=== PATIENT | female | born 1995 | race Two or more races ===

== ENCOUNTER 2025-02-23 10:00 | Inpatient (IN) | payer MEDICAID, SELFPAY ==
[2025-02-23] VITALS (9 sets, daily range): BP systolic 133–147; BP diastolic 91–108; PULSE 90–121; RESP 15–32; TEMP 36.9–37.9; O2SAT 94–100; BMI 38.4; BMI 36.3
--- NOTE | 2025-02-23 10:17 | EKG_ITS ---
[facility] Test Date: 2025-02-23 Pat Name: MAXIMINO NEWSOME Department: Room: - Gender: Female Composite Worker: : 1995 Requested By: Kj Chambers Order Number: [id number] Reading MD: Kj Chambers Measurements Intervals [place] Rate: 85 P: 42 FL: 148 QRS: 31 QRSD: 79 T: 38 QT: 352 QTc: 420 Interpretive Statements SINUS RHYTHM No previous ECG available for comparison /store/S0/[id number]/ecg/[id number].pdf
--- NOTE | 2025-02-23 10:17 | XR_ITS ---
Examination: PA lateral chest 2 views Technique T1 upright PA lateral chest 2 views Date and time: February 23, 2025 1132 hours INDICATIONS: Onset chest pain today. FINDINGS: Normal heart size. Lungs are clear. Osseous structures are intact IMPRESSION: No active disease
--- NOTE | 2025-02-23 10:18 | PD.EDRME ---
Rapid Medical Screening Exam RME Arrival date/time: 02/23/25 10:00 29-year-old female with no known medical history presents to the emergency room with a chief complaint of chest tightness, thoracic back pain, congestion, and weakness x 1 week I have greeted and performed a focused initial assessment of this patient. A comprehensive ED assessment and evaluation of the patient, analysis of all test results, and completion of the medical decision making process will be conducted by additional ED providers. Chief Complaint: Chest Pain Time Seen by Provider: 02/23/25 10:10 Vital signs: Vital Signs Temperature 100.3 F 02/23/25 10:11 Pulse Rate 95 02/23/25 10:11 Respiratory Rate 18 02/23/25 10:11 Blood Pressure 139/102 H 02/23/25 10:11 Pulse Oximetry (%) 98 02/23/25 10:11 Oxygen Delivery Method Room Air 02/23/25 10:11 Vital signs reviewed by provider: Yes
[2025-02-23] MEDS: ACETAMINOPHEN 500 MG TABLET 1000 MG PO (10:51)
[2025-02-23 11:10] LABS: Basophils % (Auto) 0 % (0-2.5); Eosinophils # (Auto) 0.1 Thou/mm3 (0.0-0.5); Eosinophils % (Auto) 0 % (0-10); Hematocrit 38.3 % (36.0-46.0); Hemoglobin 15.7 g/dL (12.0-16.0); Immature Granulocytes % (Auto) 0 % (0-0); Immature Granulocytes Auto 0.07 Thou/mm3 (0.00-0.00); Lymphocytes # (Auto) 2.2 Thou/mm3 (1.0-4.8); Lymphocytes % (Auto) 13 % (10-50); Mean Corpuscular Hemoglobin 35.9 pg (25.0-35.0); Mean Corpuscular Volume 88 fL (80-100); Monocytes # (Auto) 0.9 Thou/mm3 (0.0-0.8); Monocytes % (Auto) 5 % (0-12); Neutrophils # (Auto) 13.3 Thou/mm3 (1.8-7.7); Neutrophils % (Auto) 80 % (37-80); Nucleated Red Blood Cell % 0 /100 WBC (0); Platelet Count 309 Thou/mm3 (140-440); RDW Standard Deviation 42.2 fL (36.4-46.3); Red Blood Count 4.37 Miln/mm3 (4.00-5.20); White Blood Count 16.6 Thou/mm3 (3.6-11.0)
[2025-02-23 11:47] LABS: B-Type Natriuretic Peptide < 20 pg/mL (0-100)
[2025-02-23 11:50] LABS: Alanine Aminotransferase 16 U/L (10-49); Albumin, Serum 4.2 gm/dL (3.5-5.0); Albumin/Globulin Ratio 1.5 (1.2-2.2); Alkaline Phosphatase 86 U/L (46-116); Aspartate Amino Transferase 27 U/L (0-34); BUN/Creatinine Ratio 17 Ratio (12-20); Bilirubin,Total 0.6 mg/dL (0.3-1.2); Blood Urea Nitrogen 12 mg/dL (9-23); Calcium 8.3 mg/dL (8.3-10.6); Calcium (Corrected) 8.3 mg/dL (8.5-10.1); Chloride 98 mMol/L (98-107); Creatinine (Component) 0.7 mg/dL (0.6-1.3); Estimated Creatinine Clearance 123.9 mL/min (>60); Globulin 2.8 gm/dL (2.3-3.5); Glucose 132 mg/dL (74-106); Magnesium 1.6 mg/dL (1.6-2.6); Osmolality,Calculated 268 (275-295); Potassium 4.3 mMol/L (3.4-5.1); Sodium 133 mMol/L (136-145); Troponin I < 0.002 ng/mL (0.0-0.045); eGFR > 60 See Note
[2025-02-23 11:51] LABS: Anion Gap 23 (7-16)
[2025-02-23 11:52] LABS: Carbon Dioxide 12.2 mMol/L (20.0-31.0)
[2025-02-23] MEDS: HYDROcodone/APAP 5/325 TABLET 1 TAB PO ×2 (13:13→23:05)
--- NOTE | 2025-02-23 15:10 | PD.EDABDPN ---
ED Abdominal Pain RME/HPI General Chief Complaint: Chest Pain Stated complaint: CHEST/UPPER BACK PAIN RADIATING TO L) SIDE Time seen by provider: 02/23/25 10:10 Arrival date/time: 02/23/25 10:00 Limitations: no limitations RME / HPI RME / HPI narrative: 02/23/25 10:00 29-year-old female with no known medical history presents to the emergency room with a chief complaint of chest tightness, thoracic back pain, congestion, and weakness x 1 week I have greeted and performed a focused initial assessment of this patient. A comprehensive ED assessment and evaluation of the patient, analysis of all test results, and completion of the medical decision making process will be conducted by additional ED providers. DR. RICE MAIN ED EVALUATION: 29 year old female presents to the Emergency Department with complaint of left flank pain today. Pain is described as aching and rated severe. No other symptoms reported at this time. PMHx: section and since chronic abdominal pain. Endometriosis. Chronic hives , random with an unknown cause. Denies history of kidney stones. No allergies to medications. Social Hx: No tobacco, alcohol, or substance use. Related Data Home Medications ?Medication ?Instructions ?Recorded ?Confirmed vits no.124-ferrous fum 1 tab PO QDAY 10/13/23 10/13/23 27 mg iron-folic acid 800 mcg tablet ( Vitamin) Previous Rx's ?Medication ?Instructions ?Recorded hydrocodone 5 mg-acetaminophen 325 1 tab PO Q6H PRN pain #20 tabs 10/13/23 mg tablet ibuprofen 600 mg tablet 600 mg PO Q6H PRN pain #20 tabs 10/13/23 benzonatate 200 mg capsule 200 mg PO TID PRN cough #30 caps 10/15/23 pseudoephedrine HCl 60 mg tablet 60 mg PO Q6H PRN nasal congestion 10/15/23 #20 tabs Allergies Allergy/AdvReac Type Severity Reaction Status Date / Time No Known Allergies Allergy Verified 02/23/25 10:04 Review of Systems Review of Systems Systems Reviewed: All systems reviewed, normal except as documented Narrative Review of Systems: GEN: No fever, no chills, no weight loss EYES: No discharge, no visual changes, no pain HEENT: No ear pain, no congestion, no sore throat PULM: No shortness of breath, no cough, no congestion CV: No chest pain, no dyspnea on exertion, no palpitations GI: No nausea, no vomiting, no diarrhea, + left flank pain, no constipation : No frequency, no urgency and no dysuria MUSC/SKEL: No joint pain, no back pain SKIN: No rash PSYCH: No hallucinations, no depression HEME/LYMPH: No easy bleeding or bruising tendencies NEURO: No weakness, no headache Past Medical History Social History SMOKING STATUS: Never smoker SUBSTANCE USE: does not use ALCOHOL: Never Past Medical History Comments PMH COMMENT: section and since chronic abdominal pain. Endometriosis. Chronic hives , random with an unknown cause. Denies history of kidney stones. No allergies to medications. ED Exam General Limitations: Present no limitations General appearance: Present alert and in no apparent distress Head Head exam: Present atraumatic, normocephalic and normal inspection Eye Eye exam: Present normal appearance, PERRL and EOMI ENT ENT exam: Present normal exam, normal oropharynx and mucous membranes moist Neck Neck exam: Present normal inspection, full ROM and trachea midline Chest Chest inspection: Present normal inspection and symmetric chest wall rise Respiratory Respiratory exam: Present normal lung sounds bilaterally Cardiovascular Cardiovascular exam: Present regular rate, normal rhythm and normal heart sounds Abdominal Exam Abdominal exam: Present tenderness (1+ left flank tenderness on palpation of the latissimus dorsi) and normal bowel sounds Extremities Exam Extremities exam: Present normal inspection and full ROM Back Exam Back exam: Present normal inspection and full ROM Neurological Exam Neurological exam: Present alert, oriented X3 and CN II-XII intact Psychiatric Psychiatric exam: Present normal affect and normal mood Skin Skin exam: Present warm, dry, intact and normal color Course Quality Measures none Orders Category Date Time Status COVID-19 Screening Questionnaire NOW Care 02/23/25 17:51 Active Decision to Admit X1 Care 02/23/25 17:51 Active EKG (ED ONLY) *Do not use* NOW Care 02/23/25 10:[address] abdomen pelvis wo con Stat Exams 02/23/25 15:17 Completed EKG (ED Only) Stat Exams 02/23/25 10:17 Draft XR chest 2V Stat Exams 02/23/25 10:17 Completed ABG [Arterial Blood Gas] Stat Lab 02/23/25 17:41 Ordered B-Type Natriuretic Peptide Stat Lab 02/23/25 10:48 Completed CBC Stat Lab 02/23/25 10:48 Completed Comprehensive Metabolic Panel Stat Lab 02/23/25 10:48 Results HCG,Qualitative Serum Stat Lab 02/23/25 10:48 Completed Lipase Stat Lab 02/23/25 10:48 Results Lipid Panel Stat Lab 02/23/25 17:52 Ordered Magnesium Stat Lab 02/23/25 10:48 Results Troponin I Stat Lab 02/23/25 10:48 Results Acetaminophen Tab [Tylenol ES Tab] Med 02/23/25 10:18 Discontinued 1,000 mg PO X1 ONE Dextrose 5%-0.45% Ns [D5-1/2Ns] 1,000 ml Med 02/23/25 17:45 Active IV 150 mls/hr HYDROcodone*/APAP 5/325 [[place] 5/325] Med 02/23/25 12:28 Discontinued 1 tab PO X1 ONE Morphine Inj Med 02/23/25 15:16 Discontinued 4 mg IVP X1 ONE Morphine Inj Med 02/23/25 17:43 Discontinued 4 mg IVP X1 ONE Ondansetron Inj [Zofran Inj] Med 02/23/25 15:16 Discontinued 4 mg IV X1 ONE Ondansetron Inj [Zofran Inj] Med 02/23/25 17:43 Discontinued 4 mg IV X1 ONE Sodium Chloride 0.9% 500 ml [Ns] 500 ml Med 02/23/25 15:16 Discontinued IV 999 mls/hr Vital Signs Vital signs: Vital Signs Temperature 100.3 F 02/23/25 10:11 Pulse Rate 95 02/23/25 10:11 Respiratory Rate 18 02/23/25 10:11 Blood Pressure 139/102 H 02/23/25 10:11 Pulse Oximetry (%) 98 02/23/25 10:11 Oxygen Delivery Method Room Air 02/23/25 10:11 Abdominal Pain MDM MDM Narrative MDM Narrative:: IPati am scribing for and in the presence of Dr. Rice. Patient data External records reviewed:: [facility] previous records (Reviewed last [facility] note by Dr. Kumar, dated 10/16/23.) Clinical information provided by:: patient Social determinants that could affect healthcare access:: none Patient has the following chronic illnesses:: section and since chronic abdominal pain. Endometriosis. Chronic hives , random with an unknown cause. Denies history of kidney stones. No allergies to medications. How is presenting disease/condition affected by chronic disease/condition?: exacerbated by Evaluation data The following diagnostics were reviewed and interpreted by me:: lab results, radiology exam(s) and EKG tracing(s) (EKG#1: EKG at 1022 hours. Interpreted by me: sinus rhythm, rate 85, no acute changes, HI interval 148 ms, QRS duration 79 ms, QT/QTc 352/420, P-R-T axis 42, 31, 38) Lab and/or radiology exams considered but not ordered:: none Interpretation Summary: Procedure(s): XR chest 2V Accession Number(s): [id number] cc: Kj Shay; Omega Del Rosario MD~ Examination: PA lateral chest 2 views Technique T1 upright PA lateral chest 2 views Date and time: February 23, 2025 1132 hours INDICATIONS: Onset chest pain today. FINDINGS: Normal heart size. Lungs are clear. Osseous structures are intact IMPRESSION: No active disease Dictated By: Omega Del Rosario MD Procedure(s): CT abdomen pelvis wo con Accession Number(s): [id number] cc: Geraldo Rice MD; Omega Del Rosario MD; Asim Barnard MD~ Examination: CT abdomen and pelvis without contrast. Coronal 3-D reconstructions. Sagittal 2-D reconstructions. Date and time of exam:February 23, 2025 1619 hours INDICATIONS: Left-sided flank pain radiating to days ago CTDI: vol (mGy): 12 DLP: (mGycm): 772 Technique: Axial images of the abdomen have been obtained, 3 mm slice thickness Intravenous contrast material has not been administered. Low dose protocols were performed. One or more of the following dose reduction techniques were used; automated exposure control, adjustment of the mA and/or KV according to patient size, use of iterative reconstruction technique. Findings: Significant edema surrounding the pancreas Possible gallbladder sludge versus small stones Spleen not enlarged No renal or ureteral calculi, no hydronephrosis Aorta normal size No bowel obstruction No pericecal inflammatory change Anteverted uterus No bladder mass or bladder calculi Osseous structures are intact IMPRESSION: Acute pancreatitis, no pseudocyst Recommend hepatobiliary sonography follow-up Dictated By: Omega Del Rosario MD Medications / Prescriptions Medications or Prescriptions considered but not ordered:: none Medication administrations:: Medication Administration History Dextrose/Sodium Chloride (D5-1/2ns) 1,000 mls @ 150 mls/hr IV .Q6H40M ALAN Stop: 03/25/25 17:44 Discontinued Medications Acetaminophen (Acetaminophen 500 Mg Tablet) 1,000 mg PO X1 ONE Stop: 02/23/25 10:19 Last Admin: 02/23/25 10:51 Dose: 1,000 mg Documented By: LO Hydrocodone Bitart/Acetaminophen (Hydrocodone/Apap 5/325 Tablet) 1 tab PO X1 ONE Stop: 02/23/25 12:29 Last Admin: 02/23/25 13:13 Dose: 1 tab Documented By: LO Sodium Chloride (Ns) 500 mls @ 999 mls/hr IV .Q31M ONE Stop: 02/23/25 15:46 Last Admin: 02/23/25 15:42 Dose: 999 mls/hr Documented By: BERTO Morphine Sulfate (Morphine Sulf Inj 10 Mg/Ml Vial) 4 mg IVP X1 ONE Stop: 02/23/25 15:17 Last Admin: 02/23/25 15:42 Dose: 4 mg Documented By: BERTO Morphine Sulfate (Morphine Sulf Inj 10 Mg/Ml Vial) 4 mg IVP X1 ONE Stop: 02/23/25 17:44 Ondansetron HCl (Ondansetron Inj 2 Mg/Ml Inj 2 Ml) 4 mg IV X1 ONE; Protocol Stop: 02/23/25 15:17 Last Admin: 02/23/25 15:43 Dose: 4 mg Documented By: BERTO Ondansetron HCl (Ondansetron Inj 2 Mg/Ml Inj 2 Ml) 4 mg IV X1 ONE; Protocol Stop: 02/23/25 17:44 see above Consultations Consultation(s) initiated? (list below): Yes Consultation #1 (Physician, Specialty, Details): Discussed test HPI, PMHx, lab, radiology results and/or management with resident working with the hospitalist. Will admit for further evaluation and management. Accepts patient for admission. Time: 17:43 Diagnosis Differential diagnosis abdominal pain: abdominal pain, calculus of kidney, endometriosis and other (muscle spasm) Most likely diagnosis given after review of the tests above:: Acute pancreatitis Admission Indicated Admission indicated?: indicated Admission Request Was there a request for admission?: Yes Admission Attestation Admission request attestation: Discussed case with [] from Hospitalist service regarding admission. Discussed patients ED course, exam findings, labs, and radiology results. The Hospitalist [agrees,declines] to accept the patient for admission. Disposition Plan Disposition Plan: Admit Discharge Plan Plan Patient Disposition: Admit Acute Care w/in Hospital Prescriptions/Referrals Prescriptions/Med Rec: No Action Vitamin 27 mg iron- 800 mcg Tablet 1 tab PO QDAY hydrocodone-acetaminophen 5-325 mg tablet 1 tab PO Q6H MDD 4 PRN (Reason: pain) Qty: 20 0RF ibuprofen 600 mg tablet 600 mg PO Q6H PRN (Reason: pain) Qty: 20 0RF benzonatate 200 mg capsule 200 mg PO TID PRN (Reason: cough) Qty: 30 0RF pseudoephedrine HCl 60 mg tablet 60 mg PO Q6H PRN (Reason: nasal congestion) Qty: 20 0RF Referrals: Asim Barnard MD [Primary Care Provider] - In 1 week Problem List Clinical Impression: Acute pancreatitis Patient/Caregiver Discharge Instructions Print Language: Bulgarian Stand Alone Forms: [facility] Award Info., Patient Portal Info Letter
--- NOTE | 2025-02-23 15:17 | XR_ITS ---
Examination: CT abdomen and pelvis without contrast. Coronal 3-D reconstructions. Sagittal 2-D reconstructions. Date and time of exam:February 23, 2025 1619 hours INDICATIONS: Left-sided flank pain radiating to days ago CTDI: vol (mGy): 12 DLP: (mGycm): 772 Technique: Axial images of the abdomen have been obtained, 3 mm slice thickness Intravenous contrast material has not been administered. Low dose protocols were performed. One or more of the following dose reduction techniques were used; automated exposure control, adjustment of the mA and/or KV according to patient size, use of iterative reconstruction technique. Findings: Significant edema surrounding the pancreas Possible gallbladder sludge versus small stones Spleen not enlarged No renal or ureteral calculi, no hydronephrosis Aorta normal size No bowel obstruction No pericecal inflammatory change Anteverted uterus No bladder mass or bladder calculi Osseous structures are intact IMPRESSION: Acute pancreatitis, no pseudocyst Recommend hepatobiliary sonography follow-up
[2025-02-23 15:37] LABS: HCG,Qualitative Serum Negative
[2025-02-23] MEDS: MORPHINE SULF INJ 10 MG/ML VIAL 4 MG IVP ×2 (15:42→18:51)
[2025-02-23] MEDS: SODIUM CHLORIDE 0.9% 500 ML 500 ML 999 ML IV (15:42)
[2025-02-23] MEDS: ONDANSETRON INJ 2 MG/ML INJ 2 ML 4 MG IV ×2 (15:43→18:48)
[2025-02-23 18:06] LABS: Allen Test Performed/OK; Base Excess -1 (-3-3); HCO3 23 mEq/L (20-26); Inspired Oxygen, FIO2 95 %; O2 Saturation 94 % (91-98); PCO2 35 mmHg (32.0-48.0); PO2 64 mmHg (83-108); Puncture Site Right Radial; pH, Arterial 7.43 (7.35-7.45)
[2025-02-23 18:07] LABS: Lipase 635 U/L (12-53)
--- NOTE | 2025-02-23 18:32 | XR_ITS ---
Examination: Abdomen sonogram, Limited Date and time of exam: February 23, 2025 1854 hours INDICATIONS: Epigastric pain today, acute pancreatitis on CT abdomen study February 23, 2025 Technique: Real-time sears scale transabdominal sonographic images of the upper abdomen obtained. Findings: Negative for gallstones Gallbladder wall 0.39 cm no edema Pancreatic head 2.9 cm Liver 16.9 cm fatty infiltration Normal hepatopedal portal venous O Patent IVC IMPRESSION: Negative for cholelithiasis Borderline thickening gallbladder wall but no gallbladder wall edema, clinical correlation advised, consider HIDA scan or MRCP follow-up
--- NOTE | 2025-02-23 18:40 | PD.HHHP ---
Documentation for date of: 02/23/25 HPI - Hospitalist History of Present Illness History of present illness: Patient is a 29 years old female without known past medical history who presented to the ED with complaint of abdominal pain. Patient has been having back pain for last 3 days which has been worsening progressively. She has started having upper abdominal pain along with nausea for last couple days. Denies any vomiting, constipation or diarrhea. She also had feverish feeling with temp of 100.2 F at home. Patient had 1 beer 2 days ago but denies any other drink wihtin last week. She denies chest pain, SOB, palpitation, cough. In the ED she was found to be tachycardic, had temp of 100.3 F. Lab results were significant for WBC of 16.6, Na 133, Bicarbonate 12.2, Anion gap 23 and lipase 635. Abdomen/pelvis CT showed Acute pancreatitis without pseudocyst, possible gallbladder sludge vs small stones. Calcium was 8.3. Lipid panel has not been obtained yet. We will admit the patient for management of acute pancreatitis. Past medical/surgical history: section Social history: Used to smoke, has swithced to vape, Occasional alcohol use, Used to use marijuana, substance abuse during teenage Allergies: NKDA Review of Systems Review of Systems Systems Reviewed: All systems reviewed, normal except as documented Meds Home Medications and Allergies Home Medications ?Medication ?Instructions ?Recorded ?Confirmed ?Type vits no.124-ferrous fum 1 tab PO QDAY 10/13/23 10/13/23 History 27 mg iron-folic acid 800 mcg tablet ( Vitamin) Allergies Allergy/AdvReac Type Severity Reaction Status Date / Time No Known Allergies Allergy Verified 02/23/25 10:04 Exam Vital Signs Temp Pulse Resp BP Pulse Ox O2 Del Method 100.2 F 100 22 H 133/95 H 96 Room Air 02/23/25 18:13 02/23/25 18:13 02/23/25 18:13 02/23/25 18:13 02/23/25 18:13 02/23/25 18:13 Results - Hospitalist Labs Diagrams: 02/23/25 10:48 02/23/25 10:48 Labs: Short CBC 02/23/25 Range/Units 10:48 WBC 16.6 H (3.6-11.0) Thou/mm3 Hgb 15.7 (12.0-16.0) g/dL Hct 38.3 (36.0-46.0) % Plt Count 309 (140-440) Thou/mm3 BMP 02/23/25 10:48 Sodium 133 L Potassium 4.3 Chloride 98 Carbon Dioxide 12.2 L* BUN 12 Creatinine 0.7 Glucose 132 H Calcium 8.3 Cardiac Enzymes 02/23/25 Range/Units 10:48 Troponin I < 0.002 (0.0-0.045) ng/mL Liver Function 02/23/25 Range/Units 10:48 Total Bilirubin 0.6 (0.3-1.2) mg/dL AST 27 (0-34) U/L ALT 16 (10-49) U/L Alkaline Phosphatase 86 (46-116) U/L Albumin 4.2 (3.5-5.0) gm/dL ABG Interpretation ABG results: 02/23/25 17:57 ABG pH 7.43 ABG pCO2 35 ABG pO2 64 L ABG HCO3 23 ABG O2 Saturation 94 ABG Base Excess -1 Assessment & Plan -Hospitalist Additional Assessment Patient is a 29 years old female without known past medical history who presented to the ED with complaint of abdominal pain. Found to have acute pancreatitis. #Acute pancreatitis Unclear cause, Possibly secondary to gallstones Patient presented with abdominal and back pain, associated with nausea Lipase of 635, CT abdomen/pelvis shows acute pancreatitis, possible gallbladder sludge/small stone Patient Stated she had single beet within last week, low suspicion for alcoholic pancreatitis Calcium level 8.3 We will obtain liver US, blood alcohol level and lipid panel Analgesics regimen, antiemetics Agressive IV hydration, NS at 200cc/hr Bowel rest, plan to start diet once nausea is better #Leukocytosis Likely reactive in setting of pancreatitis No obvious source of infection F/u CBC in am #Anion gap metabolic acidosis Unclear cause We will obtain Lactate, reevaluate after 1L NS bolus Code: full code DVT prophylaxis: Lovenox SC Diet: NPO Disposition: Medsurg for management of acute pancreatitis on agrresive IV hydration, analgesics and antiemetics Anne Varma MD Quality Measures Quality Measures none
[2025-02-23] MEDS: SODIUM CHLORIDE 0.9% 1000 ML 1,000 ML 999 ML IV (18:57)
[2025-02-23] MEDS: SODIUM CHLORIDE 0.9% 1000 ML 1,000 ML 200 ML IV (20:15)
[2025-02-23] MEDS: MORPHINE SULF INJ 10 MG/ML VIAL 2 MG IVP (21:33)
[2025-02-23 21:41] LABS: Albumin, Serum 4.2 gm/dL (3.5-5.0); Alcohol, Blood Medical < 3.0 mg/dL (0-10.0); Anion Gap 18 (7-16); BUN/Creatinine Ratio 8 Ratio (12-20); Blood Urea Nitrogen < 5 mg/dL (9-23); Calcium 8.3 mg/dL (8.3-10.6); Calcium (Corrected) 8.3 mg/dL (8.5-10.1); Chloride 101 mMol/L (98-107); Creatinine (Component) 0.6 mg/dL (0.6-1.3); Estimated Creatinine Clearance 156.9 mL/min (>60); Glucose 138 mg/dL (74-106); HDL Cholesterol 26 mg/dL (40-60); Osmolality,Calculated 258 (275-295); Potassium 4.2 mMol/L (3.4-5.1); Sodium 129 mMol/L (136-145); eGFR > 60 See Note
[2025-02-23 21:41] LABS: Amphetamine/Methamp Scrn,U Negative (Negative); Barbiturate Screen,Urine Negative (Negative); Benzodiazepines Screen,Urine Negative (Negative); Benzoylecgonine Screen, Ur Negative (Negative); Fentanyl Screen,Urine Negative (Negative); Opiate Screen,Urine Positive (Negative); THC Screen,Urine Negative (Negative)
[2025-02-23 21:44] LABS: Carbon Dioxide < 10.0 mMol/L (20.0-31.0)
[2025-02-23 21:50] LABS: Cardiac Risk Estimate 24.7 RATIO (3.7-5.6); Cholesterol 642 mg/dL (132-200); Triglycerides 4170 mg/dL (30-150)
--- NOTE | 2025-02-23 21:58 | PC.NURSE ---
Blood CO2 down to <10.0 from 12.2, Dr. Irving was made aware. MD to check patient's chart.
--- NOTE | 2025-02-23 22:23 | PD.EVENT ---
Documentation for date of: 02/23/25 Event Note Event Note: TG 4170, upgrade to ICU
--- NOTE | 2025-02-23 22:34 | ESPR_ITS ---
Documentation for date of: 02/23/25 Subjective Subjective Interval history: Ms. Andujar is a 29-year-old female with past medical history of G1, P1 with C- section who presented to [facility] with chief complaint of abdominal pain. Patient states that her pain began about 3 days prior and she has had decreased p.o. intake since then. She also endorses nausea but no vomiting. She denies any alcohol use, history of gallstones, family history of pancreatitis, new medications, traumatic injury to the abdomen, or any other associated symptoms. Patient does endorse the use of OCPs due to oligomenorrhea. Patient was initially admitted to the floors and was made n.p.o. with high amounts of IV fluid resuscitation and pain control for the management of pancreatitis. Later labs were available which showed hypertriglyceridemia with triglycerides in the 4000's so decision was made to transfer the patient to the ICU and to initiate an insulin drip. In the ED she was found to be tachycardic, had temp of 100.3 F. Lab results were significant for WBC of 16.6, Na 133, Bicarbonate 12.2, Anion gap 23 and lipase 635. Abdomen/pelvis CT showed Acute pancreatitis without pseudocyst, possible gallbladder sludge vs small stones. Calcium was 8.3. Lipid panel has not been obtained yet. We will admit the patient for management of acute pancreatitis. Past medical history: Oligomenorrhea on OCPs Past surgical history: 2 years ago Social history: Patient is currently employed and endorses occasional alcohol and tobacco use. Allergies: No known drug allergies Family history: No relevant family history. 02/23/2025: Patient transferred to ICU for management of hypertriglyceridemia induced pancreatitis. Currently has leukocytosis of 16.6 with a left shift with absolute neutrophil count at 13.3. Sodium 129, bicarb less than 10, high anion gap metabolic acidosis. Glucose 138 and corrected calcium at 8.3. Triglycerides of 4170. Will initiate an insulin drip for the patient and give her high IV fluid resuscitation. Pain regimen ordered. Exam Vital Signs Temp Pulse Resp BP Pulse Ox O2 Del Method 98.4 F 113 H 21 H 140/100 H 96 Room Air 02/23/25 21:07 02/23/25 21:02/23/25 21:02/23/25 21:02/23/25 21:07 02/23/25 21:07 Narrative Exam GENERAL: Alert and oriented x 3. Very distressed and in pain. Well-nourished. EYES: EOMI. Anicteric. HEENT: Moist mucous membranes. No scleral icterus. No cervical lymphadenopathy. LUNGS: Clear to auscultation bilaterally. No accessory muscle use. CARDIOVASCULAR: Regular rate and rhythm. No murmur. No JVD. ABDOMEN: Significant epigastric tenderness with pain upon movement. EXTREMITIES: All 4 extremeties intact. No edema. Nontender. SKIN: No rashes or lesions. Warm. NEUROLOGIC: No focal neurological deficits. CN II-XII grossly intact, but not individually tested. PSYCHIATRIC: Cooperative. Appropriate mood and affect. Objective Labs 02/23/25 10:48 02/23/25 22:14 Labs: Laboratory Results - last 24 hr 02/23/25 02/23/25 02/23/25 10:48 17:57 19:46 WBC 16.6 H RBC 4.37 Hgb 15.7 Hct 38.3 MCV 88 MCH 35.9 H MCHC 41.0 H RDW Std Deviation 42.2 Plt Count 309 Neut % (Auto) 80 Lymph % (Auto) 13 Stanton % (Auto) 5 Eos % (Auto) 0 Baso % (Auto) 0 Neut # (Auto) 13.3 H Lymph # (Auto) 2.2 Stanton # (Auto) 0.9 H Eos # (Auto) 0.1 Baso # (Auto) 0.0 Immature Gran # (Auto) 0.07 H Absolute Nucleated RBC 0.00 Immature Gran % 0 Nucleated RBC % 0 Puncture Site Right Radial ABG pH 7.43 ABG pCO2 35 ABG pO2 64 L ABG HCO3 23 ABG O2 Saturation 94 ABG Base Excess -1 FiO2 95 Sodium 133 L 129 L Potassium 4.3 4.2 Chloride 98 101 Carbon Dioxide 12.2 L* < 10.0 L* Anion Gap 23 H 18 H BUN 12 < 5 L Creatinine 0.7 0.6 Estim Creat Clear Calc 123.9 156.9 eGFR > 60 > 60 BUN/Creatinine Ratio 17 8 L Glucose 132 H 138 H Calculated Osmolality 268 L 258 L Lactic Acid 2.0 Calcium 8.3 8.3 Corrected Calcium 8.3 L 8.3 L Phosphorus 2.0 L Magnesium 1.6 Total Bilirubin 0.6 AST 27 ALT 16 Alkaline Phosphatase 86 Troponin I < 0.002 B-Natriuretic Peptide < 20 Total Protein 7.0 Albumin 4.2 4.2 Globulin 2.8 Albumin/Globulin Ratio 1.5 Triglycerides 4170 H Cholesterol 642 H LDL Cholesterol, Calc TNP HDL Cholesterol 26 L Cholesterol/HDL Ratio 24.7 H Lipase 635 H HCG, Qual Negative Urine Opiates Screen Urine Fentanyl Screen Ur Barbiturates Screen U Amphetamin/Meth Scrn U Benzodiazepines Scrn U Cocaine Metab Screen U Marijuana (THC) Screen Ethyl Alcohol < 3.0 02/23/25 20:35 WBC RBC Hgb Hct MCV MCH MCHC RDW Std Deviation Plt Count Neut % (Auto) Lymph % (Auto) Stanton % (Auto) Eos % (Auto) Baso % (Auto) Neut # (Auto) Lymph # (Auto) Stanton # (Auto) Eos # (Auto) Baso # (Auto) Immature Gran # (Auto) Absolute Nucleated RBC Immature Gran % Nucleated RBC % Puncture Site ABG pH ABG pCO2 ABG pO2 ABG HCO3 ABG O2 Saturation ABG Base Excess FiO2 Sodium Potassium Chloride Carbon Dioxide Anion Gap BUN Creatinine Estim Creat Clear Calc eGFR BUN/Creatinine Ratio Glucose Calculated Osmolality Lactic Acid Calcium Corrected Calcium Phosphorus Magnesium Total Bilirubin AST ALT Alkaline Phosphatase Troponin I B-Natriuretic Peptide Total Protein Albumin Globulin Albumin/Globulin Ratio Triglycerides Cholesterol LDL Cholesterol, Calc HDL Cholesterol Cholesterol/HDL Ratio Lipase HCG, Qual Urine Opiates Screen Positive A Urine Fentanyl Screen Negative Ur Barbiturates Screen Negative U Amphetamin/Meth Scrn Negative U Benzodiazepines Scrn Negative U Cocaine Metab Screen Negative U Marijuana (THC) Screen Negative Ethyl Alcohol ABG Interpretation ABG results: 02/23/25 17:57 ABG pH 7.43 ABG pCO2 35 ABG pO2 64 L ABG HCO3 23 ABG O2 Saturation 94 ABG Base Excess -1 Quality Measures Quality Measures none Assessment & Plan Assessment Current Active Medications: Generic Name Dose Route Start Last Admin Trade Name Freq PRN Reason Stop Dose Admin Acetaminophen 650 mg 02/23/25 18:32 Acetaminophen 325 Mg Tablet PO 03/25/25 18:31 Q6H PRN Fever >101.5 Acetaminophen 650 mg 02/23/25 18:32 Acetaminophen 325 Mg Tablet PO 03/25/25 18:31 Q6H PRN PAIN SCALE 1-3 (mild Hydrocodone Bitart/Acetaminophen 1 tab 02/23/25 18:32 Hydrocodone/Apap 5/325 Tablet PO 02/28/25 18:31 Q6HR PRN PAIN SCALE 4-6 (Moderate Dextrose 25 ml 02/23/25 22:05 Dextrose 50%-Water Inj 50 Ml Syringe IV 03/25/25 22:04 Q15MIN PRN Blood sugar between 50- 69 mg/dL Dextrose 50 ml 02/23/25 22:05 Dextrose 50%-Water Inj 50 Ml Syringe IV 03/25/25 22:04 Q15MIN PRN Blood sugar less than 50 mg/dL Enoxaparin Sodium 40 mg 02/24/25 09:00 Enoxaparin Sod Inj 40 Mg/0.4 Ml Syringe SC 03/10/25 08:59 QDAY ALAN Gemfibrozil 600 mg 02/24/25 07:30 Gemfibrozil 600 Mg Tablet PO 03/26/25 07:29 BIDAC ALAN Glucagon 1 mg 02/23/25 22:05 Glucagon Inj 1 Mg Vial IM 03/25/25 22:04 QDAY PRN Blood sugar less than 70 mg/dL Hydromorphone HCl 2 mg 02/23/25 22:23 Hydromorphone Inj 2 Mg/Ml Vial IVP 02/28/25 22:22 Q3HR PRN PAIN SCALE 7-10 (Severe Sodium Chloride 1,000 mls @ 200 mls/hr 02/23/25 18:45 02/23/25 20:15 Ns IV 03/25/25 18:44 200 mls/hr .Q5H ALAN Administration Insulin Human Regular 100 unit in 100 mls @ 9.594 mls/hr 02/23/25 22:15 Myxredlin IV 03/25/25 22:14 .[id number] ALAN 0.1 UNIT/KG/HR Dextrose 1,000 mls @ 75 mls/hr 02/23/25 22:15 D10w 1000 Ml IV 03/25/25 22:14 .[id number] ALAN Protocol Potassium Chloride 10 meq in 100 mls @ 100 mls/hr 02/23/25 22:27 Kcl Ivpb IV 03/25/25 22:26 .Q1H PRN IF POTASSIUM LESS THAN 3.3 Magnesium Sulfate 2 gm in 50 mls @ 25 mls/hr 02/23/25 22:27 Magnesium Sulfate Ivpb IV 03/25/25 22:26 .Q2H PRN PER DKA PROTOCOL Dextrose/Lactated Ringer's 1,000 mls @ 250 mls/hr 02/23/25 22:27 D5-Lr IV 03/25/25 22:26 .Q4H PRN PER PROTOCOL Lactated Ringer's 1,000 mls @ 250 mls/hr 02/23/25 22:27 Lactated Ringers IV 02/24/25 22:26 .Q4H PRN PER PROTOCOL Potassium Chloride 20 meq/ 1,010 mls @ 250 mls/hr 02/23/25 22:27 Lactated Ringer's IV 03/25/25 22:26 .Q4H3M PRN K LEVEL 3.3 TO 5.3mM/L Potassium Chloride 40 meq/ 1,020 mls @ 250 mls/hr 02/23/25 22:27 Lactated Ringer's IV 03/25/25 22:26 .Q4H5M PRN K LEVEL < 3.3 mM/L Potassium Chloride 40 meq/ 1,020 mls @ 250 mls/hr 02/23/25 22:27 Dextrose/Lactated Ringer's IV 03/25/25 22:26 .Q4H5M PRN K LEVEL < 3.3mM/L Potassium Cl/Dextrose/Lact Ringer's 20 meq in 1,000 mls @ 250 mls/hr 02/23/25 22:27 Kcl 20 Meq/L In D5-Lr IV 03/25/25 22:26 .Q4H PRN K LEVEL 3.3 TO 5.3 mM/L Potassium Chloride 10 meq in 100 mls @ 50 mls/hr 02/23/25 22:27 Kcl Ivpb IV 03/25/25 22:26 PRN PRN K LEVEL 3.3 to 5.3 & BG > 200 Potassium Phosphate 15 mmol in 250 mls @ 62.5 mls/hr 02/23/25 22:27 Pot Phos 15 Mmol In Ns 250 Ml IV 03/25/25 22:26 PRN PRN Phosphate <= 1mg/dL Sodium Phosphate 15 mmol/ 255 mls @ 62.5 mls/hr 02/23/25 22:27 Sodium Chloride IV 03/25/25 22:26 .Q4H5M PRN Phosphate <= 1mg/dL and K> than 5.3 Ondansetron HCl 4 mg 02/23/25 18:32 Ondansetron Inj 2 Mg/Ml Inj 2 Ml IV 03/25/25 18:31 Q6H PRN NAUSEA OR VOMITING Protocol Pantoprazole Sodium 40 mg 02/24/25 09:00 Pantoprazole 40 Mg Tablet PO 03/26/25 08:59 QDAY ALAN Sodium Bicarbonate 50 ml 02/23/25 22:27 Sodium Bicarb Inj 8.4% Syr 50 Ml Syringe IV 03/25/25 22:26 PRN PRN For ph <= to 7.0 Plan Neurology Problem: Stable, NAD Cardiovascular Problem: Stable, NAD Respiratory Problem: Stable, NAD GI and F/E/N Problem: Acute pancreatitis DDx: Secondary to hypertriglyceridemia Diagnostic Test: Triglycerides 4071, lipase 635, CT abdomen pelvis with acute pancreatitis no pseudocyst. Liver ultrasound negative for cholelithiasis but does show borderline thickening of the gallbladder wall. Treatment Plan: Insulin drip initiated, IV fluids initiated, n.p.o. currently, pain regimen ordered. Treatment Review: Follow-up with morning CMP Renal Problem:High anion gap metabolic acidosis DDx: May be secondary to starvation ketosis due to decreased p.o. intake for the last 3 days. Beta hydroxybutyrate negative. Lactic acid 2.0. Remote history of alcohol use. No new medications prescribed. Diagnostic Test:Bicarb less than 10. BUN 5, anion gap 18. Treatment Plan: High IV fluid resuscitation with dextrose containing fluids. Follow-up with renal panel every 4 hour Treatment Review: Will monitor renal panel Heme Problem: Leukocytosis DDx: May be reactive due to inflammation but does have left shift. No source for infection Diagnostic Test: Follow-up with daily CBC and monitor clinical state. If patient develops fever we will consider ordering cultures Treatment Plan: Continue to monitor Treatment Review: Endo Problem: Oligomenorrhea Treatment Plan: Will hold OCPs during hospitalization and acute pancreatitis ID Problem: Leukocytosis DDx: Likely reactive Diagnostic Test: WBC 16.6, low-grade fevers Treatment Plan: Continue to monitor clinically. No source of infection DVT prophylaxis: Lovenox 40 SC daily GI prophylaxis: None Diet: N.p.o. Jaime: Not indicated Lines: Peripheral IVs Drips: Insulin drip with D10 water + LR Vent: Not indicated CODE STATUS: Full code Reason for hospitalization acute pancreatitis secondary to hypertriglyceridemia Plan of care discussed with supervising attending Dr. Casper Prescott M.D. PGY-3 Attending Provider Attestation/Addendum Pt was evaluated and plan formulated together with the housestaff team. I have reviewed the residents note above and agree with most of its content. Please refer to the residents note for additional details. Critical time spent on patient: 45 minutes.
[2025-02-23 22:46] LABS: Beta Hydroxybutyrate 0.3 mmol/L (<0.6)
[2025-02-23 23:00] LABS: Glucose 122 mg/dL (74-106); Potassium 4.1 mMol/L (3.4-5.1)
[2025-02-23] MEDS: INSULIN REG 100 UNITS/100 ML 100 UNIT/100 ML BAG 9.594 UNIT IV (23:00)
[2025-02-23] MEDS: HYDROmorphone INJ 2 MG/ML VIAL IVP (23:05)
[2025-02-23] MEDS: DEXTROSE 10%-WATER 1000 ML 1,000 ML 75 ML IV (23:14)
[2025-02-23 23:15] LABS: Triglycerides 1703 mg/dL (30-150)
[2025-02-23 23:31] LABS: Base Excess -1 (-3-3); HCO3 23 mEq/L (20-26); Inspired Oxygen, FIO2 21 %; O2 Saturation 91 % (91-98); PCO2 36 mmHg (32.0-48.0); pH, Arterial 7.42 (7.35-7.45)
[2025-02-23 23:33] LABS: Allen Test Performed/OK; PO2 56 mmHg (83-108); Puncture Site Right Radial
[2025-02-23] MEDS: KCL 20 mEq/L in D5-LR 20 MEQ/1,000 ML BAG 250 MEQ IV (23:45)
--- NOTE | 2025-02-23 23:47 | PC.NURSE ---
Per Dr. Genie montelongo to follow DKA protocol and switch fluids
[2025-02-24] VITALS (41 sets, daily range): BP systolic 124–147; BP diastolic 75–97; PULSE 101–136; RESP 14–39; TEMP 36.2–37.1; O2SAT 91–99; BMI 35.6; BMI 35.4
[2025-02-24] MEDS: HYDROmorphone INJ 2 MG/ML VIAL IVP ×6 (02:08→23:11)
[2025-02-24 02:50] LABS: Lactate (Lactic Acid) 1.2 mMol/L (0.4-2.0)
[2025-02-24] MEDS: ACETAMINOPHEN 325 MG TABLET 650 MG PO ×2 (03:24→17:43)
[2025-02-24 03:35] LABS: Albumin, Serum 3.6 gm/dL (3.5-5.0); Anion Gap 7 (7-16); BUN/Creatinine Ratio 10 Ratio (12-20); Blood Urea Nitrogen 6 mg/dL (9-23); Carbon Dioxide 23.8 mMol/L (20.0-31.0); Chloride 100 mMol/L (98-107); Creatinine (Component) 0.6 mg/dL (0.6-1.3); Estimated Creatinine Clearance 156.9 mL/min (>60); Glucose 113 mg/dL (74-106); Magnesium 1.4 mg/dL (1.6-2.6); Osmolality,Calculated 261 (275-295); Phosphorous 2.8 mg/dL (2.4-5.1); Potassium 3.7 mMol/L (3.4-5.1); Sodium 131 mMol/L (136-145); eGFR > 60 See Note
--- NOTE | 2025-02-24 04:18 | PC.NURSE ---
Pt complaints of 10/10 left abdominal pain, Dilaudid and tylenol previously given with no relief until next dosage time. Dr. Prescott made aware of unresolved pain. pending orders.
[2025-02-24 04:49] LABS: Calcium 6.6 mg/dL (8.3-10.6); Calcium (Corrected) 6.9 mg/dL (8.5-10.1)
[2025-02-24] MEDS: CALCIUM GLUCONATE 10% INJ 1 GM/10 ML VIAL 2 GM IV (05:49)
[2025-02-24] MEDS: Magnesium Sulfate 2 GM Ivpb 2 GM/50 ML BAG IV ×2 (06:19→06:48)
[2025-02-24 07:05] LABS: Lactate (Lactic Acid) 2.3 mMol/L (0.4-2.0)
[2025-02-24 07:14] LABS: Basophils % (Auto) 0 % (0-2.5); Eosinophils % (Auto) 0 % (0-10); Hemoglobin 12.9 g/dL (12.0-16.0); Immature Granulocytes % (Auto) 0 % (0-0); Immature Granulocytes Auto 0.07 Thou/mm3 (0.00-0.00); Lymphocytes % (Auto) 11 % (10-50); Mean Corpuscular HGB Conc 35.8 g/dl (31.0-37.0); Mean Corpuscular Hemoglobin 30.8 pg (25.0-35.0); Mean Corpuscular Volume 86 fL (80-100); Monocytes # (Auto) 1.3 Thou/mm3 (0.0-0.8); Monocytes % (Auto) 8 % (0-12); Neutrophils # (Auto) 13.9 Thou/mm3 (1.8-7.7); Neutrophils % (Auto) 81 % (37-80); Nucleated Red Blood Cell % 0 /100 WBC (0); Platelet Count 252 Thou/mm3 (140-440); RDW Standard Deviation 42.1 fL (36.4-46.3); Red Blood Count 4.19 Miln/mm3 (4.00-5.20); White Blood Count 17.3 Thou/mm3 (3.6-11.0)
[2025-02-24] MEDS: INSULIN REG 100 UNITS/100 ML 100 UNIT/100 ML BAG 9.594 UNIT IV (07:22)
[2025-02-24] MEDS: gemfibroziL 600 MG TABLET PO ×2 (07:24→16:45)
[2025-02-24 07:38] LABS: Alanine Aminotransferase 11 U/L (10-49); Albumin, Serum 3.4 gm/dL (3.5-5.0); Albumin/Globulin Ratio 1.5 (1.2-2.2); Alkaline Phosphatase 64 U/L (46-116); Anion Gap 11 (7-16); Aspartate Amino Transferase 21 U/L (0-34); BUN/Creatinine Ratio 12 Ratio (12-20); Bilirubin,Total 0.9 mg/dL (0.3-1.2); Blood Urea Nitrogen 6 mg/dL (9-23); Calcium 7.3 mg/dL (8.3-10.6); Calcium (Corrected) 7.8 mg/dL (8.5-10.1); Carbon Dioxide 24.2 mMol/L (20.0-31.0); Cardiac Risk Estimate 7.4 RATIO (3.7-5.6); Chloride 100 mMol/L (98-107); Cholesterol 303 mg/dL (132-200); Creatinine (Component) 0.5 mg/dL (0.6-1.3); Estimated Creatinine Clearance 186.4 mL/min (>60); Globulin 2.3 gm/dL (2.3-3.5); Glucose 141 mg/dL (74-106); HDL Cholesterol 41 mg/dL (40-60); Magnesium 1.8 mg/dL (1.6-2.6); Osmolality,Calculated 269 (275-295); Phosphorous 1.6 mg/dL (2.4-5.1); Potassium 3.3 mMol/L (3.4-5.1); Sodium 135 mMol/L (136-145); Total Protein 5.7 gm/dL (5.7-8.2); Triglycerides 522 mg/dL (30-150); eGFR > 60 See Note
[2025-02-24 07:47] LABS: Glucose Estimated Average 103 mg/dL (80-131); Hemoglobin A1C 5.2 % Hgb (4.8-6.0)
[2025-02-24] MEDS: PANTOPRAZOLE 40 MG TABLET PO (08:10)
[2025-02-24] MEDS: ENOXAPARIN SOD INJ 40 MG/0.4 ML SYRINGE SC (08:10)
[2025-02-24] MEDS: HYDROcodone/APAP 5/325 TABLET 1 TAB PO (08:10)
[2025-02-24] MEDS: KCL 20 mEq/L in D5-LR 20 MEQ/1,000 ML BAG 250 MEQ IV ×2 (08:10→14:29)
--- NOTE | 2025-02-24 09:05 | CHAP ---
Patient was a referral from one of the staff physicians who spoke to me about the patient. Patient seemed unsure of her condition, but knew that something was going on that she did not understand. I spoke with her and gave comfort and encouragement. Then I prayed with her.
--- NOTE | 2025-02-24 09:57 | ESPR_ITS ---
<Statement entered by Lisa Goddard MD - 02/25/25 10:05> TOTAL CC TIME:45 MIN I saw and evaluated the patient. I reviewed the resident?s note and agree with findings and plan as documented in the resident?s note. Upon my evaluation, this patient had a high probability of imminent or life- threatening deterioration due to acute pancreatitis due to hypertriglyceridemia, which required my direct attention, intervention, and personal management. This time is exclusive of time spent on procedures, which are documented separately if performed. Glad to see the severe elevation in triglyceride levels respond to insulin therapy quickly. She is able to tolerate the gemfibrozil. Her abdominal pain is also improving. Tachycardia persists due to pain but overall she feels much better. Renal function remains intact. She is at risk for pulmonary edema, monitor oxygen saturations and work of breathing. Follow CRP and physical exam. Offered p.o. clear liquids but she had very little intake. Insulin drip adjusted to titratable. Documentation for date of: 02/24/25 Subjective Subjective Interval history: Pateint 29-year-old female with past medical history of G1, P1 with who presented to [facility] with chief complaint of abdominal pain. Patient states that her pain began about 3 days prior and she has had decreased p.o. intake since then. She also endorses nausea but no vomiting. She denies any alcohol use, history of gallstones, family history of pancreatitis, new medications, traumatic injury to the abdomen, or any other associated symptoms. Patient does endorse the use of OCPs due to oligomenorrhea. Patient was initially admitted to the floors and was made n.p.o. with high amounts of IV fluid resuscitation and pain control for the management of pancreatitis. Later labs were available which showed hypertriglyceridemia with triglycerides in the 4000's so decision was made to transfer the patient to the ICU and to initiate an insulin drip. In the ED she was found to be tachycardic, had temp of 100.3 F. Lab results were significant for WBC of 16.6, Na 133, Bicarbonate 12.2, Anion gap 23 and lipase 635. Abdomen/pelvis CT showed Acute pancreatitis without pseudocyst, possible gallbladder sludge vs small stones. Calcium was 8.3. Lipid panel has not been obtained yet. We will admit the patient for management of acute pancreatitis. 02/24/2025: Overnight admission, acute pancreatitis secondary to hyeprtriglyceridemia. Patient denied family history of hypertriglyceidemia. Denied history of xanthomas. Denied hisotry of diabetes. Deneid hisotry of hypertension or cardiovascular disease. Denied history of gestational diabetes or pre-eclampisia during previous one year ago. Patient has never been on statin. Patient does not have a PCP and usually follows urgent care. Denied alcohol use disorder. Denied history illicit drug use. Patient concern for PCOS, but no official diagnosis. 20 lb weight gain since . Pain management on board with [place] 5 and Dilaudid. On admission 10/10 left upper quadrant and epigastric but improved with 4/10 with medication. Currently pain is 6/10 as pain medication due. Denied emesis. Mild Nasuea. Diet advance to Full liquid diet, modified to low fat. D5-LR rate reduced to 150 cc per hour. Continue to monitor triglycerides, goal of <500 then discontinue insulin drip. Continue to replace potassium. Exam Vital Signs Temp Pulse Resp BP Pulse Ox O2 Del Method O2 Flow Rate 98.0 F 101 H 18 125/86 H 98 Room Air 3 02/24/25 07:00 02/24/25 08:00 02/24/25 08:00 02/24/25 08:00 02/24/25 08:00 02/24/25 07:00 02/24/25 04:00 Narrative Exam General Appearance: Alert & Oriented X3, well-nourished female who is lying in bed in mild discomfort secondary to left upper quadrant pain. HEENT: Skull symmetrical and atraumatic. Conjunctivae pink and moist. Pupils equal, round, reactive to light and accommodation (PERRL). External ear without lesion or discharge. Straight, nares patient, mucosa pink, no discharge. No thyroid nodule appreciated. No cervical lymphadenopathy. Cardio: Normal Rate and Rhythm with S1 and S2 heart sounds. No murmurs or extra heart sounds auscultated. No bruits on carotid auscultation. No peripheral edema or cyanosis. Lungs: Symmetric with good expansion. Chest and back non-tender. Breath sounds vesicular without crackles, wheezing or rhonchi Abdomen: left upper quadrant tender and epigastric pain 6/10, Non-distended, Normal Reactive Bowel Sounds, Carpio sign negative Neuro: Alert, cooperative, oriented to person, place, and time. Speech clear. CN grossly intact. Upper motor strength 5/5 and Lower motor strength 5/5. Sensation intact. Objective Labs 02/24/25 06:48 02/24/25 10:03 Labs: Laboratory Results - last 24 hr 02/23/25 02/23/25 02/23/25 10:48 17:57 19:46 WBC 16.6 H RBC 4.37 Hgb 15.7 Hct 38.3 MCV 88 MCH 35.9 H MCHC 41.0 H RDW Std Deviation 42.2 Plt Count 309 Neut % (Auto) 80 Lymph % (Auto) 13 [place] % (Auto) 5 Eos % (Auto) 0 Baso % (Auto) 0 Neut # (Auto) 13.3 H Lymph # (Auto) 2.2 [place] # (Auto) 0.9 H Eos # (Auto) 0.1 Baso # (Auto) 0.0 Immature Gran # (Auto) 0.07 H Absolute Nucleated RBC 0.00 Immature Gran % 0 Nucleated RBC % 0 Puncture Site Right Radial ABG pH 7.43 ABG pCO2 35 ABG pO2 64 L ABG HCO3 23 ABG O2 Saturation 94 ABG Base Excess -1 FiO2 95 Sodium 133 L 129 L Potassium 4.3 4.2 Chloride 98 101 Carbon Dioxide 12.2 L* < 10.0 L* Anion Gap 23 H 18 H BUN 12 < 5 L Creatinine 0.7 0.6 Estim Creat Clear Calc 123.9 156.9 eGFR > 60 > 60 BUN/Creatinine Ratio 17 8 L Glucose [address] Glu mg/dL Hemoglobin A1c Calculated Osmolality 268 L 258 L Lactic Acid 2.0 Calcium 8.3 8.3 Corrected Calcium 8.3 L 8.3 L Phosphorus 2.0 L Magnesium 1.6 Total Bilirubin 0.6 AST 27 ALT 16 Alkaline Phosphatase 86 Troponin I < 0.002 B-Natriuretic Peptide < 20 Total Protein 7.0 Albumin 4.2 4.2 Globulin 2.8 Albumin/Globulin Ratio 1.5 Triglycerides 4170 H Cholesterol 642 H LDL Cholesterol, Calc TNP HDL Cholesterol 26 L Cholesterol/HDL Ratio 24.7 H Lipase 635 H Beta-Hydroxybutyrate/Acetoacetate HCG, Qual Negative Urine Opiates Screen Urine Fentanyl Screen Ur Barbiturates Screen U Amphetamin/Meth Scrn U Benzodiazepines Scrn U Cocaine Metab Screen U Marijuana (THC) Screen Ethyl Alcohol < 3.0 02/23/25 02/23/25 02/23/25 20:35 22:14 23:18 WBC RBC Hgb Hct MCV MCH MCHC RDW Std Deviation Plt Count Neut % (Auto) Lymph % (Auto) [place] % (Auto) Eos % (Auto) Baso % (Auto) Neut # (Auto) Lymph # (Auto) [place] # (Auto) Eos # (Auto) Baso # (Auto) Immature Gran # (Auto) Absolute Nucleated RBC Immature Gran % Nucleated RBC % Puncture Site Right Radial ABG pH 7.42 ABG pCO2 36 ABG pO2 56 L* ABG HCO3 23 ABG O2 Saturation 91 ABG Base Excess -1 FiO2 21 Sodium Potassium 4.1 Chloride Carbon Dioxide Anion Gap BUN Creatinine Estim Creat Clear Calc eGFR BUN/Creatinine Ratio Glucose [address] Glu mg/dL Hemoglobin A1c Calculated Osmolality Lactic Acid Calcium Corrected Calcium Phosphorus Magnesium Total Bilirubin AST ALT Alkaline Phosphatase Troponin I B-Natriuretic Peptide Total Protein Albumin Globulin Albumin/Globulin Ratio Triglycerides 1703 H Cholesterol LDL Cholesterol, Calc HDL Cholesterol Cholesterol/HDL Ratio Lipase Beta-Hydroxybutyrate/Acetoacetate 0.3 HCG, Qual Urine Opiates Screen Positive A Urine Fentanyl Screen Negative Ur Barbiturates Screen Negative U Amphetamin/Meth Scrn Negative U Benzodiazepines Scrn Negative U Cocaine Metab Screen Negative U Marijuana (THC) Screen Negative Ethyl Alcohol 02/24/25 02/24/25 02:28 06:48 WBC 17.3 H RBC 4.19 Hgb 12.9 D Hct 36.0 MCV 86 MCH 30.8 MCHC 35.8 RDW Std Deviation 42.1 Plt Count 252 D Neut % (Auto) 81 H Lymph % (Auto) 11 [place] % (Auto) 8 Eos % (Auto) 0 Baso % (Auto) 0 Neut # (Auto) 13.9 H Lymph # (Auto) 2.0 [place] # (Auto) 1.3 H Eos # (Auto) 0.0 Baso # (Auto) 0.0 Immature Gran # (Auto) 0.07 H Absolute Nucleated RBC 0.00 Immature Gran % 0 Nucleated RBC % 0 Puncture Site ABG pH ABG pCO2 ABG pO2 ABG HCO3 ABG O2 Saturation ABG Base Excess FiO2 Sodium 131 L 135 L Potassium 3.7 3.3 L Chloride 100 100 Carbon Dioxide 23.8 24.2 Anion Gap 7 11 BUN 6 L 6 L Creatinine 0.6 0.5 L Estim Creat Clear Calc 156.9 186.4 eGFR > 60 > 60 BUN/Creatinine Ratio 10 L 12 Glucose [address] Glu mg/dL 103 Hemoglobin A1c 5.2 Calculated Osmolality 261 L 269 L Lactic Acid 1.2 2.3 H Calcium 6.6 L* D 7.3 L Corrected Calcium 6.9 L* 7.8 L Phosphorus 2.8 1.6 L Magnesium 1.4 L 1.8 Total Bilirubin 0.9 AST 21 ALT 11 Alkaline Phosphatase 64 D Troponin I B-Natriuretic Peptide Total Protein 5.7 Albumin 3.6 D 3.4 L Globulin 2.3 Albumin/Globulin Ratio 1.5 Triglycerides 522 H Cholesterol 303 H LDL Cholesterol, Calc TNP HDL Cholesterol 41 Cholesterol/HDL Ratio 7.4 H Lipase Beta-Hydroxybutyrate/Acetoacetate HCG, Qual Urine Opiates Screen Urine Fentanyl Screen Ur Barbiturates Screen U Amphetamin/Meth Scrn U Benzodiazepines Scrn U Cocaine Metab Screen U Marijuana (THC) Screen Ethyl Alcohol ABG Interpretation ABG results: 02/23/25 02/23/25 17:57 23:18 ABG pH 7.43 7.42 ABG pCO2 35 36 ABG pO2 64 L 56 L* ABG HCO3 23 23 ABG O2 Saturation 94 91 ABG Base Excess -1 -1 Quality Measures Quality Measures none Assessment & Plan Assessment Current Active Medications: Generic Name Dose Route Start Last Admin Trade Name Freq PRN Reason Stop Dose Admin Acetaminophen 650 mg 02/23/25 18:32 Acetaminophen 325 Mg Tablet PO 03/25/25 18:31 Q6H PRN Fever >101.5 Acetaminophen 650 mg 02/23/25 18:32 02/24/25 03:24 Acetaminophen 325 Mg Tablet PO 03/25/25 18:31 650 mg Q6H PRN Administration PAIN SCALE 1-3 (mild Hydrocodone Bitart/Acetaminophen 1 tab 02/23/25 18:32 02/24/25 08:10 Hydrocodone/Apap 5/325 Tablet PO 02/28/25 18:31 1 tab Q6HR PRN Administration PAIN SCALE 4-6 (Moderate Dextrose 25 ml 02/23/25 22:05 Dextrose 50%-Water Inj 50 Ml Syringe IV 03/25/25 22:04 Q15MIN PRN Blood sugar between 50- 69 mg/dL Dextrose 50 ml 02/23/25 22:05 Dextrose 50%-Water Inj 50 Ml Syringe IV 03/25/25 22:04 Q15MIN PRN Blood sugar less than 50 mg/dL Enoxaparin Sodium 40 mg 02/24/25 09:00 02/24/25 08:10 Enoxaparin Sod Inj 40 Mg/0.4 Ml Syringe SC 03/10/25 08:59 40 mg QDAY ALAN Administration Famotidine 20 mg 02/25/25 09:00 Famotidine 20 Mg Tablet PO 03/27/25 08:59 QDAY ALAN Gemfibrozil 600 mg 02/24/25 07:30 02/24/25 07:24 Gemfibrozil 600 Mg Tablet PO 03/26/25 07:29 600 mg BIDAC ALAN Administration Glucagon 1 mg 02/23/25 22:05 Glucagon Inj 1 Mg Vial IM 03/25/25 22:04 QDAY PRN Blood sugar less than 70 mg/dL Hydromorphone HCl 2 mg 02/23/25 22:23 02/24/25 02:08 Hydromorphone Inj 2 Mg/Ml Vial IVP 02/28/25 22:22 2 mg Q3HR PRN Administration PAIN SCALE 7-10 (Severe Dextrose 1,000 mls @ 75 mls/hr 02/23/25 22:15 02/23/25 23:14 D10w 1000 Ml IV 03/25/25 22:14 75 mls/hr .[id number] ALAN Administration Protocol Potassium Chloride 10 meq in 100 mls @ 100 mls/hr 02/23/25 22:27 Kcl Ivpb IV 03/25/25 22:26 .Q1H PRN IF POTASSIUM LESS THAN 3.3 Magnesium Sulfate 2 gm in 50 mls @ 25 mls/hr 02/23/25 22:27 02/24/25 06:49 Magnesium Sulfate Ivpb IV 03/25/25 22:26 Infused .Q2H PRN Infusion PER DKA PROTOCOL Lactated Ringer's 1,000 mls @ 250 mls/hr 02/23/25 22:27 Lactated Ringers IV 02/24/25 22:26 .Q4H PRN PER PROTOCOL Potassium Chloride 20 meq/ 1,010 mls @ 250 mls/hr 02/23/25 22:27 Lactated Ringer's IV 03/25/25 22:26 .Q4H3M PRN K LEVEL 3.3 TO 5.3mM/L Potassium Chloride 40 meq/ 1,020 mls @ 250 mls/hr 02/23/25 22:27 Lactated Ringer's IV 03/25/25 22:26 .Q4H5M PRN K LEVEL < 3.3 mM/L Potassium Chloride 40 meq/ 1,020 mls @ 250 mls/hr 02/23/25 22:27 Dextrose/Lactated Ringer's IV 03/25/25 22:26 .Q4H5M PRN K LEVEL < 3.3mM/L Potassium Cl/Dextrose/Lact Ringer's 20 meq in 1,000 mls @ 250 mls/hr 02/23/25 22:27 02/24/25 08:10 Kcl 20 Meq/L In D5-Lr IV 03/25/25 22:26 250 mls/hr .Q4H PRN Administration K LEVEL 3.3 TO 5.3 mM/L Potassium Chloride 10 meq in 100 mls @ 50 mls/hr 02/23/25 22:27 Kcl Ivpb IV 03/25/25 22:26 PRN PRN K LEVEL 3.3 to 5.3 & BG > 200 Potassium Phosphate 15 mmol in 250 mls @ 62.5 mls/hr 02/23/25 22:27 Pot Phos 15 Mmol In Ns 250 Ml IV 03/25/25 22:26 PRN PRN Phosphate <= 1mg/dL Sodium Phosphate 15 mmol/ 255 mls @ 62.5 mls/hr 02/23/25 22:27 Sodium Chloride IV 03/25/25 22:26 .Q4H5M PRN Phosphate <= 1mg/dL and K> than 5.3 Insulin Human Regular 100 unit in 100 mls @ 9.42 mls/hr 02/24/25 09:04 Myxredlin IV 03/26/25 09:03 .[id number] PRN PER PROTOCOL Protocol 0.1 UNIT/KG/HR Dextrose/Lactated Ringer's 1,000 mls @ 150 mls/hr 02/24/25 09:45 D5-Lr IV 03/25/25 22:26 .Q6H40M PRN PER PROTOCOL Potassium Chloride 10 meq in 100 mls @ 100 mls/hr 02/24/25 09:50 Kcl Ivpb IV 02/24/25 11:49 Q1H ALAN Ondansetron HCl 4 mg 02/23/25 18:32 Ondansetron Inj 2 Mg/Ml Inj 2 Ml IV 03/25/25 18:31 Q6H PRN NAUSEA OR VOMITING Protocol Sodium Bicarbonate 50 ml 02/23/25 22:27 Sodium Bicarb Inj 8.4% Syr 50 Ml Syringe IV 03/25/25 22:26 PRN PRN For ph <= to 7.0 Plan Patient is a 29 year female with limited past medical history who was admitted on 02/23/2025 for acute pancreatitis secondary to hypertriglyceridemia. Neurology Problem: Stable, NAD Cardiovascular Problem: Hypertriglyceridemia ASCVD risk, high intensity satins recommended. Patient would benefit from close follow up outpatietn. Respiratory Problem: Stable, saturating well 98% on N.C 3 liters. Given acute pancreatitis and fluid resuscitation, please monitor for pulmonary edema/ARDS. No pumonary edema noted on admission. -Chest x-ray AM 02/25/2025 GI and F/E/N Problem: Acute pancreatitis DDx: Secondary to hypertriglyceridemia secondary to obesity vs less likely secondary to alcohol vs oral contraceptives induced hypertriglyceridemia but less likely as this is rare. Diagnostic Test: Triglycerides 4071, lipase 635, CT abdomen pelvis with acute pancreatitis no pseudocyst. Liver ultrasound negative for cholelithiasis but does show borderline thickening of the gallbladder wall. A1c 5.2 % (02/24/2025) - Treatment Plan: Insulin drip initiated and Gemfibrozil 600 BIDAC , IV fluids initiated, Full Liquid (low fat) currently, pain regimen ordered. Q4HR monitor renal panel and triglycerides. Dextrose-LR 150 cc w/ potassium riders per protocal, and 20 meq of potassium x1 -Glove Brusher Consulted -outpatient: Lipoprotien and Apoliporotine B Incidental finding Fatty Liver Infiltration Class 2 Obesity likely secondary to obesity given BMI 35.4 kg/m2 (class 2 obesity) vs MANUEL vs less likely secondary to hepatitis as AST/ALT within normal limits. Renal Problem:High anion gap metabolic acidosis, improved DDx: May be secondary to starvation ketosis due to decreased p.o. intake for the last 3 days. Beta hydroxybutyrate negative. Lactic acid 2.0. Remote history of alcohol use. No new medications prescribed. Diagnostic Test:Bicarb less than 10. BUN 5, anion gap 18. Treatment Plan: High IV fluid resuscitation with dextrose containing fluids. Follow-up with renal panel every 4 hour Treatment Review: Will monitor renal panel Heme Problem: SIRS criteria secondary to acute pancreatitis, Leukocytosis likely reactive DDx: May be reactive due to inflammation but does have left shift. No source for infection Diagnostic Test: Follow-up with daily CBC and monitor clinical state. If patient develops fever we will consider ordering cultures Treatment Plan: Continue to monitor Treatment Review: Endo Problem: Oligomenorrhea Treatment Plan: Will hold OCPs during hospitalization and acute pancreatitis -outpatient, consider FSH level ID Problem: SIRS in the setting of pancreatitis, Leukocytosis DDx: Likely reactive Diagnostic Test: WBC 16.6, low-grade fevers Treatment Plan: Continue to monitor clinically. No source of infection DVT prophylaxis: Lovenox 40 SC daily GI prophylaxis: Famotadine Diet: Full liquid diet-low fat Jaime: Not indicated Lines: Peripheral IVs Drips: Insulin drip with D10 water + LR Vent: Not indicated CODE STATUS: Full code - The patient's plan was discussed with attending Dr. Rupesh Alba MD PGY1 Internal Medicine
[2025-02-24 10:05] LABS: Reflex Lactate? Y
[2025-02-24 10:28] LABS: Lactate (Lactic Acid) 2.2 mMol/L (0.4-2.0)
[2025-02-24 10:55] LABS: Albumin, Serum 3.5 gm/dL (3.5-5.0); Anion Gap 8 (7-16); BUN/Creatinine Ratio 8 Ratio (12-20); Blood Urea Nitrogen < 5 mg/dL (9-23); Calcium 7.2 mg/dL (8.3-10.6); Calcium (Corrected) 7.6 mg/dL (8.5-10.1); Carbon Dioxide 25.1 mMol/L (20.0-31.0); Chloride 102 mMol/L (98-107); Creatinine (Component) 0.6 mg/dL (0.6-1.3); Estimated Creatinine Clearance 155.4 mL/min (>60); Glucose 129 mg/dL (74-106); Magnesium 2.4 mg/dL (1.6-2.6); Osmolality,Calculated 269 (275-295); Phosphorous 1.8 mg/dL (2.4-5.1); Potassium 3.8 mMol/L (3.4-5.1); Sodium 135 mMol/L (136-145); Triglycerides 550 mg/dL (30-150); eGFR > 60 See Note
[2025-02-24] MEDS: POTASSIUM CHL 10 mEq IVPB 10 MEQ/100 ML BAG 100 MEQ IV ×2 (11:01→13:10)
[2025-02-24 13:26] LABS: Reflex Lactate? Y
[2025-02-24] MEDS: ONDANSETRON INJ 2 MG/ML INJ 2 ML 4 MG IV ×2 (14:24→20:47)
[2025-02-24 15:25] LABS: Lactate (Lactic Acid) 1.8 mMol/L (0.4-2.0)
[2025-02-24 15:45] LABS: Albumin, Serum 3.5 gm/dL (3.5-5.0); Anion Gap 7 (7-16); BUN/Creatinine Ratio 8 Ratio (12-20); Blood Urea Nitrogen < 5 mg/dL (9-23); Calcium 7.1 mg/dL (8.3-10.6); Calcium (Corrected) 7.5 mg/dL (8.5-10.1); Chloride 103 mMol/L (98-107); Creatinine (Component) 0.6 mg/dL (0.6-1.3); Estimated Creatinine Clearance 155.4 mL/min (>60); Glucose 115 mg/dL (74-106); Magnesium 2.2 mg/dL (1.6-2.6); Osmolality,Calculated 266 (275-295); Phosphorous 1.1 mg/dL (2.4-5.1); Potassium 4.4 mMol/L (3.4-5.1); Sodium 134 mMol/L (136-145); Triglycerides 471 mg/dL (30-150); eGFR > 60 See Note
--- NOTE | 2025-02-24 16:29 | ESPR_ITS ---
Documentation for date of: 02/24/25 Subjective Subjective Interval history: 29-year-old female with past medical history of endometriosis, asthma who presented to the ED due to abdominal pain. Patient was admitted for acute pancreatitis secondary to hypertriglyceridemia. Patient seen today in the ICU found awake, alert, orientedx3. Vitals and labs reviewed. Is complaining of 6 out of 10 abdominal pain with associated nausea and unable to tolerate full liquid diet. Triglycerides are being monitored daily as well as CRP. Pending chest x-ray in the a.m. tomorrow. Currently on IV fluids. Pain regimen on board with Wilson and dilaudid. Exam Vital Signs Temp Pulse Resp BP Pulse Ox O2 Del Method O2 Flow Rate 98.6 F 124 H 25 H 147/97 H 99 Room Air 3 02/24/25 12:00 02/24/25 15:20 02/24/25 15:20 02/24/25 14:00 02/24/25 15:20 02/24/25 07:00 02/24/25 04:00 Narrative Exam Physical Exam GENERAL: NAD, AAOx3 HEENT: Moist mucosa. Eyes open, symmetrical, & clear CARDIO: Heart RRR, no obvious murmurs PULM: No noted coughing/dyspnea CTA B/L, no R/W/R GI: Abdomen soft, nondistended, epigastric abdominal pain, tender to palpation, bowel sounds appreciated SKIN/MSK/EXT: No wounds/rashes/edema/amputations, no pain on palpation. Pedal pulses present B/L NEURO: AAOx3, no focal neuro deficits, able to move all 4 extremities Objective Labs 02/25/25 05:18 02/25/25 05:18 Labs: Laboratory Results - last 24 hr 02/23/25 02/23/25 02/23/25 10:48 17:57 19:46 WBC RBC Hgb Hct MCV MCH MCHC RDW Std Deviation Plt Count Neut % (Auto) Lymph % (Auto) [place] % (Auto) Eos % (Auto) Baso % (Auto) Neut # (Auto) Lymph # (Auto) [place] # (Auto) Eos # (Auto) Baso # (Auto) Immature Gran # (Auto) Absolute Nucleated RBC Immature Gran % Nucleated RBC % Puncture Site Right Radial ABG pH 7.43 ABG pCO2 35 ABG pO2 64 L ABG HCO3 23 ABG O2 Saturation 94 ABG Base Excess -1 FiO2 95 Sodium 129 L Potassium 4.2 Chloride 101 Carbon Dioxide < 10.0 L* Anion Gap 18 H BUN < 5 L Creatinine 0.6 Estim Creat Clear Calc 156.9 eGFR > 60 BUN/Creatinine Ratio 8 L Glucose [address] Glu mg/dL Hemoglobin A1c Calculated Osmolality 258 L Lactic Acid 2.0 Calcium 8.3 Corrected Calcium 8.3 L Phosphorus 2.0 L Magnesium Total Bilirubin AST ALT Alkaline Phosphatase Total Protein Albumin 4.2 Globulin Albumin/Globulin Ratio Triglycerides 4170 H Cholesterol 642 H LDL Cholesterol, Calc TNP HDL Cholesterol 26 L Cholesterol/HDL Ratio 24.7 H Lipase 635 H Beta-Hydroxybutyrate/Acetoacetate Urine Opiates Screen Urine Fentanyl Screen Ur Barbiturates Screen U Amphetamin/Meth Scrn U Benzodiazepines Scrn U Cocaine Metab Screen U Marijuana (THC) Screen Ethyl Alcohol < 3.0 02/23/25 02/23/25 02/23/25 20:35 22:14 23:18 WBC RBC Hgb Hct MCV MCH MCHC RDW Std Deviation Plt Count Neut % (Auto) Lymph % (Auto) [place] % (Auto) Eos % (Auto) Baso % (Auto) Neut # (Auto) Lymph # (Auto) [place] # (Auto) Eos # (Auto) Baso # (Auto) Immature Gran # (Auto) Absolute Nucleated RBC Immature Gran % Nucleated RBC % Puncture Site Right Radial ABG pH 7.42 ABG pCO2 36 ABG pO2 56 L* ABG HCO3 23 ABG O2 Saturation 91 ABG Base Excess -1 FiO2 21 Sodium Potassium 4.1 Chloride Carbon Dioxide Anion Gap BUN Creatinine Estim Creat Clear Calc eGFR BUN/Creatinine Ratio Glucose [address] Glu mg/dL Hemoglobin A1c Calculated Osmolality Lactic Acid Calcium Corrected Calcium Phosphorus Magnesium Total Bilirubin AST ALT Alkaline Phosphatase Total Protein Albumin Globulin Albumin/Globulin Ratio Triglycerides 1703 H Cholesterol LDL Cholesterol, Calc HDL Cholesterol Cholesterol/HDL Ratio Lipase Beta-Hydroxybutyrate/Acetoacetate 0.3 Urine Opiates Screen Positive A Urine Fentanyl Screen Negative Ur Barbiturates Screen Negative U Amphetamin/Meth Scrn Negative U Benzodiazepines Scrn Negative U Cocaine Metab Screen Negative U Marijuana (THC) Screen Negative Ethyl Alcohol 02/24/25 02/24/25 02/24/25 02:28 06:48 10:03 WBC 17.3 H RBC 4.19 Hgb 12.9 D Hct 36.0 MCV 86 MCH 30.8 MCHC 35.8 RDW Std Deviation 42.1 Plt Count 252 D Neut % (Auto) 81 H Lymph % (Auto) 11 [place] % (Auto) 8 Eos % (Auto) 0 Baso % (Auto) 0 Neut # (Auto) 13.9 H Lymph # (Auto) 2.0 [place] # (Auto) 1.3 H Eos # (Auto) 0.0 Baso # (Auto) 0.0 Immature Gran # (Auto) 0.07 H Absolute Nucleated RBC 0.00 Immature Gran % 0 Nucleated RBC % 0 Puncture Site ABG pH ABG pCO2 ABG pO2 ABG HCO3 ABG O2 Saturation ABG Base Excess FiO2 Sodium 131 L 135 L 135 L Potassium 3.7 3.3 L 3.8 D Chloride 100 100 102 Carbon Dioxide 23.8 24.2 25.1 Anion Gap 7 11 8 BUN 6 L 6 L < 5 L Creatinine 0.6 0.5 L 0.6 Estim Creat Clear Calc 156.9 186.4 155.4 eGFR > 60 > 60 > 60 BUN/Creatinine Ratio 10 L 12 8 L Glucose 113 H 141 [address] Glu mg/dL 103 Hemoglobin A1c 5.2 Calculated Osmolality 261 L 269 L 269 L Lactic Acid 1.2 2.3 H 2.2 H Calcium 6.6 L* D 7.3 L 7.2 L Corrected Calcium 6.9 L* 7.8 L 7.6 L Phosphorus 2.8 1.6 L 1.8 L Magnesium 1.4 L 1.8 2.4 Total Bilirubin 0.9 AST 21 ALT 11 Alkaline Phosphatase 64 D Total Protein 5.7 Albumin 3.6 D 3.4 L 3.5 Globulin 2.3 Albumin/Globulin Ratio 1.5 Triglycerides 522 H 550 H Cholesterol 303 H LDL Cholesterol, Calc TNP HDL Cholesterol 41 Cholesterol/HDL Ratio 7.4 H Lipase Beta-Hydroxybutyrate/Acetoacetate Urine Opiates Screen Urine Fentanyl Screen Ur Barbiturates Screen U Amphetamin/Meth Scrn U Benzodiazepines Scrn U Cocaine Metab Screen U Marijuana (THC) Screen Ethyl Alcohol 02/24/25 15:08 WBC RBC Hgb Hct MCV MCH MCHC RDW Std Deviation Plt Count Neut % (Auto) Lymph % (Auto) [place] % (Auto) Eos % (Auto) Baso % (Auto) Neut # (Auto) Lymph # (Auto) [place] # (Auto) Eos # (Auto) Baso # (Auto) Immature Gran # (Auto) Absolute Nucleated RBC Immature Gran % Nucleated RBC % Puncture Site ABG pH ABG pCO2 ABG pO2 ABG HCO3 ABG O2 Saturation ABG Base Excess FiO2 Sodium 134 L Potassium 4.4 D Chloride 103 Carbon Dioxide 24.0 Anion Gap 7 BUN < 5 L Creatinine 0.6 Estim Creat Clear Calc 155.4 eGFR > 60 BUN/Creatinine Ratio 8 L Glucose [address] Glu mg/dL Hemoglobin A1c Calculated Osmolality 266 L Lactic Acid 1.8 Calcium 7.1 L Corrected Calcium 7.5 L Phosphorus 1.1 L Magnesium 2.2 Total Bilirubin AST ALT Alkaline Phosphatase Total Protein Albumin 3.5 Globulin Albumin/Globulin Ratio Triglycerides 471 H Cholesterol LDL Cholesterol, Calc HDL Cholesterol Cholesterol/HDL Ratio Lipase Beta-Hydroxybutyrate/Acetoacetate Urine Opiates Screen Urine Fentanyl Screen Ur Barbiturates Screen U Amphetamin/Meth Scrn U Benzodiazepines Scrn U Cocaine Metab Screen U Marijuana (THC) Screen Ethyl Alcohol ABG Interpretation ABG results: 02/23/25 02/23/25 17:57 23:18 ABG pH 7.43 7.42 ABG pCO2 35 36 ABG pO2 64 L 56 L* ABG HCO3 23 23 ABG O2 Saturation 94 91 ABG Base Excess -1 -1 Quality Measures Quality Measures none Assessment & Plan Assessment Current Active Medications: Generic Name Dose Route Start Last Admin Trade Name Freq PRN Reason Stop Dose Admin Acetaminophen 650 mg 02/23/25 18:32 Acetaminophen 325 Mg Tablet PO 03/25/25 18:31 Q6H PRN Fever >101.5 Acetaminophen 650 mg 02/23/25 18:32 02/24/25 03:24 Acetaminophen 325 Mg Tablet PO 03/25/25 18:31 650 mg Q6H PRN Administration PAIN SCALE 1-3 (mild Hydrocodone Bitart/Acetaminophen 1 tab 02/23/25 18:32 02/24/25 08:10 Hydrocodone/Apap 5/325 Tablet PO 02/28/25 18:31 1 tab Q6HR PRN Administration PAIN SCALE 4-6 (Moderate Albuterol 2.5 mg 02/24/25 15:08 Albuterol Rt 2.5 Mg/0.5 Ml Nebu INH 03/26/25 18:59 Q4HRRT PRN Asthma/wheezing Dextrose 25 ml 02/23/25 22:05 Dextrose 50%-Water Inj 50 Ml Syringe IV 03/25/25 22:04 Q15MIN PRN Blood sugar between 50- 69 mg/dL Dextrose 50 ml 02/23/25 22:05 Dextrose 50%-Water Inj 50 Ml Syringe IV 03/25/25 22:04 Q15MIN PRN Blood sugar less than 50 mg/dL Enoxaparin Sodium 40 mg 02/24/25 09:00 02/24/25 08:10 Enoxaparin Sod Inj 40 Mg/0.4 Ml Syringe SC 03/10/25 08:59 40 mg QDAY ALAN Administration Famotidine 20 mg 02/25/25 09:00 Famotidine 20 Mg Tablet PO 03/27/25 08:59 QDAY ALAN Gemfibrozil 600 mg 02/24/25 07:30 02/24/25 07:24 Gemfibrozil 600 Mg Tablet PO 03/26/25 07:29 600 mg BIDAC ALAN Administration Glucagon 1 mg 02/23/25 22:05 Glucagon Inj 1 Mg Vial IM 03/25/25 22:04 QDAY PRN Blood sugar less than 70 mg/dL Hydromorphone HCl 2 mg 02/23/25 22:23 02/24/25 11:01 Hydromorphone Inj 2 Mg/Ml Vial IVP 02/28/25 22:22 2 mg Q3HR PRN Administration PAIN SCALE 7-10 (Severe Magnesium Sulfate 2 gm in 50 mls @ 25 mls/hr 02/23/25 22:27 02/24/25 06:49 Magnesium Sulfate Ivpb IV 03/25/25 22:26 Infused .Q2H PRN Infusion PER DKA PROTOCOL Potassium Phosphate 15 mmol in 250 mls @ 62.5 mls/hr 02/23/25 22:27 Pot Phos 15 Mmol In Ns 250 Ml IV 03/25/25 22:26 PRN PRN Phosphate <= 1mg/dL Lactated Ringer's 1,000 mls @ 150 mls/hr 02/24/25 16:15 Lactated Ringers IV 02/25/25 15:00 .Q6H40M ALAN Ondansetron HCl 4 mg 02/23/25 18:32 02/24/25 14:24 Ondansetron Inj 2 Mg/Ml Inj 2 Ml IV 03/25/25 18:31 4 mg Q6H PRN Administration NAUSEA OR VOMITING Protocol Sennosides 1 tab 02/24/25 15:15 Senna/Docusate Sod 1 Tab Tablet PO 03/26/25 15:14 QDAY ALAN Protocol Sodium Chloride 3 ml 02/24/25 15:08 Sodium Chloride Rt Kanika 0.9% 3 Ml Nebu INH 03/26/25 15:07 PRN PRN SOLN Plan 29 year female with limited past medical history who was admitted on 02/23/2025 for acute pancreatitis secondary to hypertriglyceridemia. #Acute pancreatitis secondary to hypertryglyceridemia Triglycerides 4071, lipase 635, CT abdomen pelvis with acute pancreatitis no pseudocyst. Liver ultrasound negative for cholelithiasis but does show borderline thickening of the gallbladder wall. A1c 5.2 % (02/24/2025) ASCVD risk, high intensity satins recommended. Patient would benefit from close follow up outpatient OFF insulin drip -Gemfibrozil 600 BIDAC , IV fluids initiated -Full Liquid (low fat) currently, pain regimen ordered. - f/u triglycerides. - on LR -Furniture Finisher Consulted -outpatient: Lipoprotien and Apoliporotine B #High anion gap metabolic acidosis, improved secondary to starvation ketosis due to decreased p.o. intake for the last 3 days. Beta hydroxybutyrate negative. Lactic acid 2.0. Remote history of alcohol use. No new medications prescribed. Diagnostic Test:Bicarb less than 10. BUN 5, anion gap 18. -High IV fluid resuscitation with dextrose containing fluids. -Follow-up with renal panel every 4 hour #Leukocytosis likely reactive DDx: May be reactive due to inflammation but does have left shift. No source for infection Diagnostic Test: Follow-up with daily CBC and monitor clinical state. If patient develops fever we will consider ordering cultures -Continue to monitor #Oligomenorrhea Will hold OCPs during hospitalization and acute pancreatitis -outpatient, consider FSH level DVT prophylaxis: Lovenox 40 SC daily GI prophylaxis: Famotidine Diet: Full liquid diet-low fat Jaime: Not indicated Lines: Peripheral IVs CODE STATUS: Full code Case discussed with case discussed with my senior Dr. Curran my attending Dr. Candelaria Sharma MD PGY-1 Attending Provider Attestation/Addendum I, Radha Gaona, DO, attest that I was physically present for the phan portions of the service and evaluated the patient with the resident and I reviewed and discussed the case with the resident and agree with the resident's findings and plans of care as documented above Patient is a 29-year-old female with no significant past medical history who was brought to the ED due to abdominal pain last for 3 days. She was found to have acute pancreatitis on admission, initially thought to be secondary to gallstones. However, triglycerides were noted to be 4170. Patient was subsequent admitted to the ICU for insulin drip due to hypertriglyceridemia. Patient denies any alcohol use. Triglycerides have down trended appropriately with insulin drip, now at 488. Patient downgraded from ICU. She continues to have abdominal pain with movement and tenderness with slight palpation in the epigastric region. She was started on gemfibrozil 600 mg p.o. twice daily. Patient requesting to see a dietitian . Counseled patient on lifestyle changes and weight loss. Continue with IV fluids, and pain control as needed. Patient has been started on clear liquid diet. Will slowly advance diet as tolerated.
[2025-02-24] MEDS: SENNA/DOCUSATE SOD 1 TAB TABLET PO (16:42)
[2025-02-24] MEDS: RINGERS LACTATED 1000 ML 1,000 ML 150 ML IV ×2 (16:42→23:16)
[2025-02-24] MEDS: guaiFENesin/DM TABLET 1 EACH PO (16:42)
[2025-02-24 17:07] LABS: Triglycerides 488 mg/dL (30-150)
[2025-02-24] MEDS: NAPH,KPH MBDB 1 PACKET (1.5 GM) PO (17:40)
[2025-02-25] VITALS (11 sets, daily range): BP systolic 104–136; BP diastolic 79–99; PULSE 114–148; RESP 16–26; TEMP 36.8–37.2; O2SAT 91–100
[2025-02-25] MEDS: HYDROmorphone INJ 2 MG/ML VIAL IVP ×4 (03:32→21:48)
[2025-02-25] MEDS: RINGERS LACTATED 1000 ML 1,000 ML 150 ML IV ×3 (05:36→20:22)
[2025-02-25 06:00] LABS: Basophils % (Auto) 0 % (0-2.5); Eosinophils % (Auto) 0 % (0-10); Hemoglobin 12.3 g/dL (12.0-16.0); Immature Granulocytes % (Auto) 1 % (0-0); Immature Granulocytes Auto 0.11 Thou/mm3 (0.00-0.00); Lymphocytes # (Auto) 1.7 Thou/mm3 (1.0-4.8); Lymphocytes % (Auto) 10 % (10-50); Mean Corpuscular HGB Conc 34.2 g/dl (31.0-37.0); Mean Corpuscular Hemoglobin 30.7 pg (25.0-35.0); Mean Corpuscular Volume 90 fL (80-100); Monocytes # (Auto) 1.2 Thou/mm3 (0.0-0.8); Monocytes % (Auto) 7 % (0-12); Neutrophils # (Auto) 14.8 Thou/mm3 (1.8-7.7); Neutrophils % (Auto) 83 % (37-80); Nucleated Red Blood Cell % 0 /100 WBC (0); Platelet Count 243 Thou/mm3 (140-440); RDW Standard Deviation 45.2 fL (36.4-46.3); Red Blood Count 4.01 Miln/mm3 (4.00-5.20); White Blood Count 17.8 Thou/mm3 (3.6-11.0)
--- NOTE | 2025-02-25 06:00 | XR_ITS ---
Examination: AP chest single view TECHNIQUE: AP portable upright chest single view Date and time: February 25, 2025 0549 hours Comparison February 23, 2025 INDICATIONS: Chest pain today. FINDINGS: Significant left base retrocardiac pneumonia Normal heart size Reduced inspiratory effort IMPRESSION: Significant left base pneumonia, consider aspiration pneumonia
[2025-02-25 06:40] LABS: Alanine Aminotransferase 8 U/L (10-49); Albumin, Serum 3.2 gm/dL (3.5-5.0); Albumin/Globulin Ratio 1.4 (1.2-2.2); Alkaline Phosphatase 58 U/L (46-116); Anion Gap 7 (7-16); Aspartate Amino Transferase 17 U/L (0-34); BUN/Creatinine Ratio 8 Ratio (12-20); Bilirubin,Total 1.4 mg/dL (0.3-1.2); Blood Urea Nitrogen 5 mg/dL (9-23); C-Reactive Protein 30.3 mg/dL (0.0-0.9); Calcium (Corrected) 7.6 mg/dL (8.5-10.1); Carbon Dioxide 25.6 mMol/L (20.0-31.0); Chloride 101 mMol/L (98-107); Creatinine (Component) 0.6 mg/dL (0.6-1.3); Estimated Creatinine Clearance 155.4 mL/min (>60); Globulin 2.3 gm/dL (2.3-3.5); Glucose 108 mg/dL (74-106); Osmolality,Calculated 266 (275-295); Potassium 4.3 mMol/L (3.4-5.1); Sodium 134 mMol/L (136-145); Total Protein 5.5 gm/dL (5.7-8.2); Triglycerides 357 mg/dL (30-150); eGFR > 60 See Note
--- NOTE | 2025-02-25 08:08 | CHAP ---
Patient was visited by a Spiritual Care Volunteer on 02/24/2025 between 0900 and 1130 and received comfort, encouragement and/or prayer.
[2025-02-25] MEDS: FAMOTIDINE 20 MG TABLET PO (08:39)
[2025-02-25] MEDS: ENOXAPARIN SOD INJ 40 MG/0.4 ML SYRINGE SC (08:39)
[2025-02-25] MEDS: SENNA/DOCUSATE SOD 1 TAB TABLET PO (08:40)
[2025-02-25] MEDS: NAPH,KPH MBDB 1 PACKET (1.5 GM) 2 PACKET PO (08:40)
[2025-02-25] MEDS: CALCIUM CARBONATE 600 MG TABLET PO (08:40)
--- NOTE | 2025-02-25 09:40 | PC.SS ---
MINING ENGINEER conducted bedside contact with the patient conduct initial assessment and to discuss discharge planning.? Patient confirmed demographic information.? Patient resides at home with spouse, Philip Marc; .? Patient is currently employed.? Patient does not utilize any form of DME to assist with ambulation.? Patient does not utilize home oxygen.? Patient describes the ability to complete ADL?s independently.? Patient identified spouse, Philip Marc; as medical surrogate decision maker.? Patient utilizes [facility] for PCP services.? Patient discussed desire to locate other clinic for PCP services.? Patient in agreement to have social science research assistant submit referral for follow up at [facility] upon discharge.? Patient utilizes [facility] for medication services.? Patient does not participate with dialysis.? Patient does not possess any specialty providers.? Patient possesses history of diabetes.? Plan is for the patient to return home at the time of discharge.? Spouse will provide transportation on behalf of the patient. ?No further discharge needs identified by the patient.? No further intervention required at this time, social science research assistant will be available to address any further concerns.? Next of Kin: Philip Marc D/C Plan: Home
--- NOTE | 2025-02-25 09:42 | ESPR_ITS ---
<Statement entered by Dylon Calderon MD - 02/25/25 16:11> Patient was seen and examined at bedside. Patient still reports significant amount of pain, she tried to start oral feeding however she had significant amount of pain which made her not eat her diet for today morning. Encouraged the patient to resume her diet at any time she can eat. Patient was also noticed to have low phosphate, low magnesium, and low calcium, her triglyceride is 357. We repleted IV electrolytes, patient still on IV fluids 150 mL, will wean the patient off of fluids as soon as she is able to tolerate feedings. We noticed that the patient has low-grade fever which most likely secondary to the pancreatitis, at this time low suspicion for infection. Will continue to monitor closely. - Patient's plan and care discussed with my attending, Dr Lia Calderon MD Internal Medicine PGY-2 Documentation for date of: 02/25/25 Subjective Subjective Interval history: Pt examined at bedside today. No acute overnight events. Patient still reports she is having pain in the left upper quadrant and some in the right upper quadrant as well. She says that she gets a bit nauseous after she drinks certain liquids however is able to tolerate water. No other complaints at this time Exam Vital Signs Temp Pulse Resp BP Pulse Ox O2 Del Method O2 Flow Rate 98.8 F 124 H 21 H 119/88 H 91 L Room Air 3 02/25/25 07:39 02/25/25 07:39 02/25/25 07:39 02/25/25 07:39 02/25/25 07:39 02/25/25 07:39 02/24/25 04:00 Narrative Exam General: AAOx3, in mild distress, obese HEENT: Dry mucous membranes, conjunctiva clear, EOMI, PERRLA, Cardiovascular: S1, S2, radial pulses +2 bilat, RRR Pulmonary: CTAB bilat no cough, no wheezing GI: Tenderness to palpitation in both RUQ and LUQ, no guarding, rigidity, rebound tenderness or distension Extremities: No presence of trace or pitting edema in lower extremities bilaterally, dorsalis pedis pulses +2 bilaterally Neuro: AAOx3, no focal motor or sensory deficits in the UE or LE bilat Psych: Good judgement, thought and behavior. Cooperative Objective Labs 02/26/25 04:47 02/26/25 04:47 Labs: Laboratory Results - last 24 hr 02/24/25 02/24/25 02/24/25 10:03 15:08 15:08 WBC RBC Hgb Hct MCV MCH MCHC RDW Std Deviation Plt Count Neut % (Auto) Lymph % (Auto) [place] % (Auto) Eos % (Auto) Baso % (Auto) Neut # (Auto) Lymph # (Auto) [place] # (Auto) Eos # (Auto) Baso # (Auto) Immature Gran # (Auto) Absolute Nucleated RBC Immature Gran % Nucleated RBC % Sodium 135 L 134 L Potassium 3.8 D 4.4 D Chloride 102 103 Carbon Dioxide 25.1 24.0 Anion Gap 8 7 BUN < 5 L < 5 L Creatinine 0.6 0.6 Estim Creat Clear Calc 155.4 155.4 eGFR > 60 > 60 BUN/Creatinine Ratio 8 L 8 L Glucose 129 H 115 H Calculated Osmolality 269 L 266 L Lactic Acid 2.2 H 1.8 Calcium 7.2 L 7.1 L Corrected Calcium 7.6 L 7.5 L Phosphorus 1.8 L 1.1 L Magnesium 2.4 2.2 Total Bilirubin AST ALT Alkaline Phosphatase C-Reactive Prot, Quant 25.0 H Total Protein Albumin 3.5 3.5 Globulin Albumin/Globulin Ratio Triglycerides 550 H 471 H 488 H 02/25/25 05:18 WBC 17.8 H RBC 4.01 Hgb 12.3 Hct 36.0 MCV 90 MCH 30.7 MCHC 34.2 RDW Std Deviation 45.2 Plt Count 243 Neut % (Auto) 83 H Lymph % (Auto) 10 [place] % (Auto) 7 Eos % (Auto) 0 Baso % (Auto) 0 Neut # (Auto) 14.8 H Lymph # (Auto) 1.7 [place] # (Auto) 1.2 H Eos # (Auto) 0.0 Baso # (Auto) 0.0 Immature Gran # (Auto) 0.11 H Absolute Nucleated RBC 0.00 Immature Gran % 1 H Nucleated RBC % 0 Sodium 134 L Potassium 4.3 Chloride 101 Carbon Dioxide 25.6 Anion Gap 7 BUN 5 L Creatinine 0.6 Estim Creat Clear Calc 155.4 eGFR > 60 BUN/Creatinine Ratio 8 L Glucose 108 H Calculated Osmolality 266 L Lactic Acid Calcium 7.0 L Corrected Calcium 7.6 L Phosphorus 1.0 L Magnesium 2.0 Total Bilirubin 1.4 H D AST 17 ALT 8 L Alkaline Phosphatase 58 C-Reactive Prot, Quant 30.3 H Total Protein 5.5 L Albumin 3.2 L Globulin 2.3 Albumin/Globulin Ratio 1.4 Triglycerides 357 H ABG Interpretation ABG results: 02/23/25 02/23/25 17:57 23:18 ABG pH 7.43 7.42 ABG pCO2 35 36 ABG pO2 64 L 56 L* ABG HCO3 23 23 ABG O2 Saturation 94 91 ABG Base Excess -1 -1 Quality Measures Quality Measures none Assessment & Plan Assessment Current Active Medications: Generic Name Dose Route Start Last Admin Trade Name Freq PRN Reason Stop Dose Admin Acetaminophen 650 mg 02/23/25 18:32 02/24/25 17:43 Acetaminophen 325 Mg Tablet PO 03/25/25 18:31 650 mg Q6H PRN Administration Fever >101.5 Acetaminophen 650 mg 02/23/25 18:32 02/24/25 03:24 Acetaminophen 325 Mg Tablet PO 03/25/25 18:31 650 mg Q6H PRN Administration PAIN SCALE 1-3 (mild Hydrocodone Bitart/Acetaminophen 1 tab 02/23/25 18:32 02/24/25 08:10 Hydrocodone/Apap 5/325 Tablet PO 02/28/25 18:31 1 tab Q6HR PRN Administration PAIN SCALE 4-6 (Moderate Albuterol 2.5 mg 02/24/25 15:08 Albuterol Rt 2.5 Mg/0.5 Ml Nebu INH 03/26/25 18:59 Q4HRRT PRN Asthma/wheezing Dextrose 25 ml 02/23/25 22:05 Dextrose 50%-Water Inj 50 Ml Syringe IV 03/25/25 22:04 Q15MIN PRN Blood sugar between 50- 69 mg/dL Dextrose 50 ml 02/23/25 22:05 Dextrose 50%-Water Inj 50 Ml Syringe IV 03/25/25 22:04 Q15MIN PRN Blood sugar less than 50 mg/dL Enoxaparin Sodium 40 mg 02/24/25 09:00 02/25/25 08:39 Enoxaparin Sod Inj 40 Mg/0.4 Ml Syringe SC 03/10/25 08:59 40 mg QDAY ALAN Administration Famotidine 20 mg 02/25/25 09:00 02/25/25 08:39 Famotidine 20 Mg Tablet PO 03/27/25 08:59 20 mg QDAY ALAN Administration Gemfibrozil 600 mg 02/24/25 07:30 02/25/25 08:29 Gemfibrozil 600 Mg Tablet PO 03/26/25 07:29 Not Given BIDAC ALAN Glucagon 1 mg 02/23/25 22:05 Glucagon Inj 1 Mg Vial IM 03/25/25 22:04 QDAY PRN Blood sugar less than 70 mg/dL Hydromorphone HCl 2 mg 02/23/25 22:23 02/25/25 07:23 Hydromorphone Inj 2 Mg/Ml Vial IVP 02/28/25 22:22 2 mg Q3HR PRN Administration PAIN SCALE 7-10 (Severe Lactated Ringer's 1,000 mls @ 150 mls/hr 02/24/25 16:15 02/25/25 05:36 Lactated Ringers IV 02/25/25 15:00 150 mls/hr .Q6H40M ALAN Administration Ondansetron HCl 4 mg 02/23/25 18:32 02/24/25 20:47 Ondansetron Inj 2 Mg/Ml Inj 2 Ml IV 03/25/25 18:31 4 mg Q6H PRN Administration NAUSEA OR VOMITING Protocol Sennosides 1 tab 02/24/25 15:15 02/25/25 08:40 Senna/Docusate Sod 1 Tab Tablet PO 03/26/25 15:14 1 tab QDAY ALAN Administration Protocol Sodium Chloride 3 ml 02/24/25 15:08 Sodium Chloride Rt Kanika 0.9% 3 Ml Nebu INH 03/26/25 15:07 PRN PRN SOLN Plan Assessment 29 year female with limited past medical history who was admitted on 02/23/2025 for acute pancreatitis secondary to hypertriglyceridemia. #Acute pancreatitis secondary to hypertryglyceridemia In the ED: Triglycerides 4071, lipase 635, CT abdomen pelvis with acute pancreatitis no pseudocyst. Liver ultrasound negative for cholelithiasis but does show borderline thickening of the gallbladder wall. A1c 5.2 % (02/24/2025) Patient is triglycerides today 357 Patient could also be having pancreatitis due to cholecystitis as well however we do know that patient has hypertriglyceridemia and this is the likely cause of pancreatitis Plan: ? Gemfibrozil 600 BID ? Clear liquid ? Continue lactated Ringer's 150 cc/hour ? Dietary consulted, appreciate recs #? Cholecystitis Ultrasound shows borderline gallbladder thickening, recommending HIDA or MRCP Will continue to treat pancreatitis and hold off on further workup at this time #Hypophosphatemia #Hypocalcemia #High anion gap metabolic acidosis, resolved Secondary to starvation ketosis due to decreased p.o. intake for the last 3 days. Beta hydroxybutyrate negative. Lactic acid 2.0. Remote history of alcohol use. No new medications prescribed. Phosphorus 1.0 today, calcium 7.6, likely related to poor oral intake Plan: ? Trend lytes and CMP ? Neutra-Phos 2 packets twice daily for 1 day ? Calcium carbonate 600 mg x 1 with calcium chloride 10% Inj x1 ? Dietitian on consult, appreciate recs #Leukocytosis, improving Likely reactive Plan: ? Trend w/CBC #Oligomenorrhea Will hold OCPs during hospitalization and acute pancreatitis Plan: ? Outpatient follow-up #Health Maintenance Disposition: MedSurg DVT prophylaxis: Lovenox GI prophylaxis: Pepcid Diet: Clear liquid CODE STATUS: Full Patient seen and care discussed with my senior resident, Dr. Calderon, and my attending physician, Dr. Lia Reyes, PPGY-1 Attending Provider Attestation/Addendum I have examined the patient, reviewed labs and imaging findings, discussed the case with the resident(s), and reviewed entered orders. I agree with the plan of care as outlined in this note, with these additional summaries/recommendations: Patient seen at bedside. No acute overnight events. Patient still endorsing intractable pain requiring IV pain medicines. We will attempt to wean as tolerated. Patient is unable to tolerate full liquid diet and will de-escalate to clear liquid diet. Continue antiemetics and as needed pain medicines. Leukocytosis is present although no indication for antibiotics at this time. Will continue to monitor and initiate if indicated. If patient's symptoms do not improve we may need to repeat imaging of the pancreas to rule out any complication. Chest x-ray does show significant left base pneumonia although patient has no pulmonary symptoms to report at this time. Patient denies productive cough and shortness of breath. Continue IV fluids. Pancreatitis secondary to triglyceridemia which has now improved to 357. Continue gemfibrozil. Significant electrolyte abnormalities present with hypocalcemia and hypophosphatemia. We will aggressively replete and repeat level in AM. Minimal hyperbilirubinemia present although possibly just secondary to edema of pancreas. Blood cultures show no growth at 24 hours. Repeat hematology and chemistry panel in AM. Please see residents note for additional details and management. Dr. Lia MD
--- NOTE | 2025-02-25 09:58 | PC.SS ---
Follow up note: ICU downgrade. On IV fluids. Pt is NPO. Possibly will require surgery consult. Pt will return home upon dc.
[2025-02-25] MEDS: Calcium Chloride 10% Inj 10 ML in SODIUM CHLORIDE 0.9% 100 ML 110 ML IV (10:09)
--- NOTE | 2025-02-25 10:54 | CHAP ---
Visited patient and gave some words of comfort and encouragement. Patient was a little groggy and trying to get comfortable and sleep.
[2025-02-25] MEDS: HYDROcodone/APAP 5/325 TABLET 1 TAB PO ×2 (11:38→18:21)
[2025-02-25] MEDS: ALBUTEROL/IPRATROPIUM (Duoneb) RT SOL 3 ML NEBU INH (16:48)
--- NOTE | 2025-02-25 19:34 | EKG_ITS ---
[facility] Test Date: 2025-02-25 Pat Name: MAXIMINO NEWSOME [facility] Gender: Female Pricing Actuary: FERMIN JACKSONB: 1995 Requested By: Ronnie Irving Order Number: [id number] Reading MD: Ronnie Irving Measurements Intervals [place] Rate: 131 P: 42 SD: 147 QRS: 41 QRSD: 79 T: 31 QT: 285 QTc: 421 Interpretive Statements SINUS TACHYCARDIA ABNORMAL RHYTHM ECG Compared to ECG 02/23/2025 10:22:52 Sinus rhythm no longer present /store/S0/[id number]
[2025-02-26] VITALS (7 sets, daily range): BP systolic 99–129; BP diastolic 67–92; PULSE 113–139; RESP 16–21; TEMP 36.3–36.9; O2SAT 92–97
[2025-02-26] MEDS: HYDROcodone/APAP 5/325 TABLET 1 TAB PO ×2 (03:00→20:46)
[2025-02-26] MEDS: RINGERS LACTATED 1000 ML 1,000 ML 150 ML IV (03:01)
[2025-02-26 06:19] LABS: Basophils % (Auto) 0 % (0-2.5); Eosinophils % (Auto) 0 % (0-10); Hematocrit 30.3 % (36.0-46.0); Hemoglobin 10.2 g/dL (12.0-16.0); Immature Granulocytes % (Auto) 1 % (0-0); Immature Granulocytes Auto 0.07 Thou/mm3 (0.00-0.00); Lymphocytes # (Auto) 1.5 Thou/mm3 (1.0-4.8); Lymphocytes % (Auto) 10 % (10-50); Mean Corpuscular HGB Conc 33.7 g/dl (31.0-37.0); Mean Corpuscular Hemoglobin 30.9 pg (25.0-35.0); Mean Corpuscular Volume 92 fL (80-100); Monocytes # (Auto) 1.1 Thou/mm3 (0.0-0.8); Monocytes % (Auto) 8 % (0-12); Neutrophils # (Auto) 11.5 Thou/mm3 (1.8-7.7); Neutrophils % (Auto) 81 % (37-80); Nucleated Red Blood Cell % 0 /100 WBC (0); Platelet Count 197 Thou/mm3 (140-440); RDW Standard Deviation 47.1 fL (36.4-46.3); White Blood Count 14.3 Thou/mm3 (3.6-11.0)
[2025-02-26] MEDS: MORPHINE SULF INJ 10 MG/ML VIAL 4 MG IVP (06:24)
[2025-02-26] MEDS: bisacodyL 10 MG SUPP PR (06:24)
[2025-02-26 06:47] LABS: Alanine Aminotransferase < 7 U/L (10-49); Albumin, Serum 3.1 gm/dL (3.5-5.0); Albumin/Globulin Ratio 1.3 (1.2-2.2); Alkaline Phosphatase 59 U/L (46-116); Anion Gap 9 (7-16); Aspartate Amino Transferase 17 U/L (0-34); BUN/Creatinine Ratio 10 Ratio (12-20); Bilirubin,Total 1.8 mg/dL (0.3-1.2); Blood Urea Nitrogen < 5 mg/dL (9-23); C-Reactive Protein 34.6 mg/dL (0.0-0.9); Calcium 7.6 mg/dL (8.3-10.6); Calcium (Corrected) 8.3 mg/dL (8.5-10.1); Chloride 102 mMol/L (98-107); Creatinine (Component) 0.5 mg/dL (0.6-1.3); Estimated Creatinine Clearance 186.4 mL/min (>60); Globulin 2.4 gm/dL (2.3-3.5); Glucose 108 mg/dL (74-106); Magnesium 1.7 mg/dL (1.6-2.6); Osmolality,Calculated 270 (275-295); Phosphorous 1.4 mg/dL (2.4-5.1); Potassium 3.9 mMol/L (3.4-5.1); Sodium 136 mMol/L (136-145); Total Protein 5.5 gm/dL (5.7-8.2); eGFR > 60 See Note
[2025-02-26] MEDS: NAPH,KPH MBDB 1 PACKET (1.5 GM) 2 PACKET PO (09:32)
[2025-02-26] MEDS: FAMOTIDINE 20 MG TABLET PO (09:32)
[2025-02-26] MEDS: CALCIUM CARBONATE 600 MG TABLET PO (09:32)
[2025-02-26] MEDS: ENOXAPARIN SOD INJ 40 MG/0.4 ML SYRINGE SC (09:33)
[2025-02-26] MEDS: Magnesium Sulfate 2 GM Ivpb 2 GM/50 ML BAG IV (09:34)
[2025-02-26] MEDS: ACETAMINOPHEN 325 MG TABLET 650 MG PO ×2 (09:42→18:39)
[2025-02-26] MEDS: SENNA/DOCUSATE SOD 1 TAB TABLET PO (09:44)
--- NOTE | 2025-02-26 10:31 | XR_ITS ---
Examination: ROSENDO, hepatobiliary radioisotope scan Gallbladder ejection fraction study. Date and time of exam: February 26, 2025 1550 hours INDICATIONS: Worsening abdominal pain radiating to back especially the last 3 days, elevated total bilirubin on laboratory examination today Technique: 6.0 mCi of 99M Hepatolite administered. Serial imaging then obtained from immediate through 60 minutes. 2.0 mcg selective catheter Kinevac administered for gallbladder ejection fraction study. Findings: Radioisotope activity within the liver is reasonably homogenous. Gallbladder, common bile duct small bowel activity noted Impression: Gallbladder activity Abnormal gallbladder ejection fraction, 23%, normal greater than 35%
[2025-02-26] MEDS: SIMETHICONE 80 MG CHEW PO (10:40)
[2025-02-26] MEDS: POTASSIUM PHOS 22.5 MMOL in SODIUM CHLORIDE 0.9% 500 ML 500 ML 82.778 MMOL IV (10:40)
[2025-02-26] MEDS: cefTRIAXone/D5w 1gm IV premix 1 GM/50 ML BAG IV (11:41)
[2025-02-26 12:16] LABS: HCG Qualitative,Urine Negative
[2025-02-26] MEDS: RINGERS LACTATED 1000 ML 1,000 ML 75 ML IV (12:43)
[2025-02-26] MEDS: AZITHROMYCIN INJ 500 MG in SODIUM CHLORIDE 0.9% 250 ML 250 ML 250 MG IV (12:43)
[2025-02-26] MEDS: ONDANSETRON INJ 2 MG/ML INJ 2 ML 4 MG IV (13:13)
--- NOTE | 2025-02-26 13:28 | PD.RESPRO ---
Documentation for date of: 02/26/25 Subjective Subjective Interval history: Pt examined at bedside today. No acute overnight events. Pt reports she that she is improving. Her abdominal pain is improving and she has been using less pain medicine. She says she is tolerating more liquid and soft foods at this time. She is wondering if she is going to get a HIDA scan today. No other complaints at this time. Exam Vital Signs Temp Pulse Resp BP Pulse Ox O2 Del Method O2 Flow Rate 97.5 F 128 H 17 99/67 93 L Room Air 3 02/26/25 08:00 02/26/25 08:00 02/26/25 08:00 02/26/25 08:00 02/26/25 08:00 02/26/25 08:00 02/24/25 04:00 Narrative Exam General: AAOx3, in mild distress, obese HEENT: Dry mucous membranes, conjunctiva clear, EOMI, PERRLA, Cardiovascular: S1, S2, radial pulses +2 bilat, RRR Pulmonary: CTAB bilat no cough, no wheezing GI: Tenderness to palpitation in both RUQ and LUQ, no guarding, rigidity, rebound tenderness or distension Extremities: No presence of trace or pitting edema in lower extremities bilaterally, dorsalis pedis pulses +2 bilaterally Neuro: AAOx3, no focal motor or sensory deficits in the UE or LE bilat Psych: Good judgement, thought and behavior. Cooperative Objective Labs 02/27/25 04:59 02/27/25 04:59 Labs: Laboratory Results - last 24 hr 02/26/25 02/26/25 04:47 11:53 WBC 14.3 H RBC 3.30 L Hgb 10.2 L D Hct 30.3 L MCV 92 MCH 30.9 MCHC 33.7 RDW Std Deviation 47.1 H Plt Count 197 D Neut % (Auto) 81 H Lymph % (Auto) 10 [place] % (Auto) 8 Eos % (Auto) 0 Baso % (Auto) 0 Neut # (Auto) 11.5 H Lymph # (Auto) 1.5 [place] # (Auto) 1.1 H Eos # (Auto) 0.0 Baso # (Auto) 0.0 Immature Gran # (Auto) 0.07 H Absolute Nucleated RBC 0.00 Immature Gran % 1 H Nucleated RBC % 0 Sodium 136 Potassium 3.9 Chloride 102 Carbon Dioxide 25.0 Anion Gap 9 BUN < 5 L Creatinine 0.5 L Estim Creat Clear Calc 186.4 eGFR > 60 BUN/Creatinine Ratio 10 L Glucose 108 H Calculated Osmolality 270 L Calcium 7.6 L Corrected Calcium 8.3 L Phosphorus 1.4 L Magnesium 1.7 Total Bilirubin 1.8 H AST 17 ALT < 7 L Alkaline Phosphatase 59 C-Reactive Prot, Quant 34.6 H Total Protein 5.5 L Albumin 3.1 L Globulin 2.4 Albumin/Globulin Ratio 1.3 Urine HCG, Qual Negative ABG Interpretation ABG results: 02/23/25 02/23/25 17:57 23:18 ABG pH 7.43 7.42 ABG pCO2 35 36 ABG pO2 64 L 56 L* ABG HCO3 23 23 ABG O2 Saturation 94 91 ABG Base Excess -1 -1 Quality Measures Quality Measures none Assessment & Plan Assessment Current Active Medications: Generic Name Dose Route Start Last Admin Trade Name Freq PRN Reason Stop Dose Admin Acetaminophen 650 mg 02/23/25 18:32 02/24/25 17:43 Acetaminophen 325 Mg Tablet PO 03/25/25 18:31 650 mg Q6H PRN Administration Fever >101.5 Acetaminophen 650 mg 02/23/25 18:32 02/26/25 09:42 Acetaminophen 325 Mg Tablet PO 03/25/25 18:31 650 mg Q6H PRN Administration PAIN SCALE 1-3 (mild Hydrocodone Bitart/Acetaminophen 1 tab 02/23/25 18:32 02/26/25 03:00 Hydrocodone/Apap 5/325 Tablet PO 02/28/25 18:31 1 tab Q6HR PRN Administration PAIN SCALE 4-6 (Moderate Albuterol/Ipratropium 3 ml 02/25/25 16:08 02/25/25 16:48 Albuterol/Ipratropium (Duoneb) Rt [place] 3 Ml Nebu INH 03/27/25 18:59 3 ml Q6HRRT PRN Administration wheezing Dextrose 25 ml 02/23/25 22:05 Dextrose 50%-Water Inj 50 Ml Syringe IV 03/25/25 22:04 Q15MIN PRN Blood sugar between 50- 69 mg/dL Dextrose 50 ml 02/23/25 22:05 Dextrose 50%-Water Inj 50 Ml Syringe IV 03/25/25 22:04 Q15MIN PRN Blood sugar less than 50 mg/dL Enoxaparin Sodium 40 mg 02/24/25 09:00 02/26/25 09:33 Enoxaparin Sod Inj 40 Mg/0.4 Ml Syringe SC 03/10/25 08:59 40 mg QDAY ALAN Administration Famotidine 20 mg 02/25/25 09:00 02/26/25 09:32 Famotidine 20 Mg Tablet PO 03/27/25 08:59 20 mg QDAY ALAN Administration Gemfibrozil 600 mg 02/24/25 07:30 02/26/25 09:18 Gemfibrozil 600 Mg Tablet PO 03/26/25 07:29 Not Given BIDAC ALAN Glucagon 1 mg 02/23/25 22:05 Glucagon Inj 1 Mg Vial IM 03/25/25 22:04 QDAY PRN Blood sugar less than 70 mg/dL Hydromorphone HCl 2 mg 02/23/25 22:23 02/25/25 21:48 Hydromorphone Inj 2 Mg/Ml Vial IVP 02/28/25 22:22 2 mg Q3HR PRN Administration PAIN SCALE 7-10 (Severe Potassium Phosphate 22.5 mmol/ 507.5 mls @ 82.778 mls/hr 02/26/25 08:07 02/26/25 10:40 Sodium Chloride IV 02/26/25 14:14 82.778 mls/hr X1 ONE Administration Lactated Ringer's 1,000 mls @ 75 mls/hr 02/26/25 10:33 02/26/25 12:43 Lactated Ringers IV 03/28/25 10:32 75 mls/hr .[id number] ALAN Administration Ceftriaxone Sodium/Dextrose 1 gm in 50 mls @ 100 mls/hr 02/26/25 10:45 02/26/25 11:41 Rocephin/D5w 1gm Iv Premix IV 03/05/25 10:44 100 mls/hr QDAY ALAN Administration Azithromycin 500 mg/ Sodium 250 mls @ 250 mls/hr 02/26/25 10:41 02/26/25 12:43 Chloride IV 03/05/25 10:40 250 mls/hr QDAY ALAN Administration Ondansetron HCl 4 mg 02/23/25 18:32 02/26/25 13:13 Ondansetron Inj 2 Mg/Ml Inj 2 Ml IV 03/25/25 18:31 4 mg Q6H PRN Administration NAUSEA OR VOMITING Protocol Sennosides 1 tab 02/24/25 15:15 02/26/25 09:44 Senna/Docusate Sod 1 Tab Tablet PO 03/26/25 15:14 1 tab QDAY ALAN Administration Protocol Simethicone 80 mg 02/26/25 09:42 02/26/25 10:40 Simethicone 80 Mg Chew PO 03/28/25 09:41 80 mg QID PRN Administration GAS Sodium Chloride 3 ml 02/24/25 15:08 Sodium Chloride Rt [place] 0.9% 3 Ml Nebu INH 03/26/25 15:07 PRN PRN SOLN Plan Assessment 29 year female with limited past medical history who was admitted on 02/23/2025 for acute pancreatitis secondary to hypertriglyceridemia. #Acute pancreatitis secondary to hypertryglyceridemia In the ED: Triglycerides 4071, lipase 635, CT abdomen pelvis with acute pancreatitis no pseudocyst. Liver ultrasound negative for cholelithiasis but does show borderline thickening of the gallbladder wall. A1c 5.2 % (02/24/2025) Patient is triglycerides today 357 Patient could also be having pancreatitis due to cholecystitis as well however we do know that patient has hypertriglyceridemia and this is the likely cause of pancreatitis Advancing diet as tolerated at this point, pt continues to improve her oral intake and has not vomitted Plan: ? Gemfibrozil 600 BID ? Will advance diet as tolerated after HIDA ? Continue lactated Ringer's 75 cc/hour ? Dietary consulted, appreciate recs #Community acquired Pneumonia Patient continues to have leukocytosis, is complaining of a dry cough Chest x-ray did show some possible infiltrate Patient also spiked a fever today of 100.9 Plan: ? Continue with Rocephin 1 g IV and Azithromycin 500 mg IV qday (02/26- #? Cholecystitis Ultrasound shows borderline gallbladder thickening, recommending HIDA or MRCP Will continue to treat pancreatitis Pt continues to have RUQ as well, will work up now Plan: ? HIDA scan w/[facility] ? Holding narcotics until after scan is done #Hypophosphatemia, improving #Hypocalcemia, improving #High anion gap metabolic acidosis, resolved Secondary to starvation ketosis due to decreased p.o. intake for the last 3 days. Beta hydroxybutyrate negative. Lactic acid 2.0. Remote history of alcohol use. No new medications prescribed. Phosphorus 1.4 today, calcium 8.2, likely related to poor oral intake Plan: ? Trend lytes and CMP ? Neutra-Phos 2 packets today, KPhos 22.5 mg x1 ? Calcium carbonate 600 mg x 1 ? Dietitian on consult, appreciate recs #Oligomenorrhea Will hold OCPs during hospitalization and acute pancreatitis Plan: ? Outpatient follow-up #Health Maintenance Disposition: MedSurg DVT prophylaxis: Lovenox GI prophylaxis: Pepcid Diet: N.p.o. for HIDA scan CODE STATUS: Full Patient seen and care discussed with my attending physician, Dr. Lia Reyes, PPGY-1 Attending Provider Attestation/Addendum I have examined the patient, reviewed labs and imaging findings, discussed the case with the resident(s), and reviewed entered orders. I agree with the plan of care as outlined in this note, with these additional summaries/recommendations: Patient seen at bedside. No acute overnight events. Patient still endorsing intractable pain requiring IV pain medicines. We will attempt to wean as tolerated. Sinus tachycardia persists. Patient was only able to tolerate liquid diet this morning. Continue antiemetics and as needed pain medicines. Continue IV fluids. Pancreatitis most likely secondary to triglyceridemia which has now improved to 357 although there was concern for gallbladder wall thickening on admission and we will order HIDA Scan. Continue gemfibrozil. Significant electrolyte abnormalities present with hypocalcemia and hypophosphatemia. We will aggressively replete and repeat level in AM. Minimal hyperbilirubinemia present although possibly just secondary to edema of pancreatitis. Blood cultures show no growth at 48 hours. Continue IV antibiotics for community-acquired pneumonia seen on chest x-ray. Repeat hematology and chemistry panel in AM. Please see residents note for additional details and management. Dr. Lia MD
[2025-02-27] VITALS (11 sets, daily range): BP systolic 108–141; BP diastolic 70–99; PULSE 97–113; RESP 16–20; TEMP 36–37.2; O2SAT 94–98; BMI 35.0; BMI 35.4
[2025-02-27] MEDS: ACETAMINOPHEN 325 MG TABLET 650 MG PO (03:02)
[2025-02-27 05:30] LABS: Basophils % (Auto) 0 % (0-2.5); Eosinophils # (Auto) 0.2 Thou/mm3 (0.0-0.5); Eosinophils % (Auto) 1 % (0-10); Hematocrit 29.9 % (36.0-46.0); Hemoglobin 9.9 g/dL (12.0-16.0); Immature Granulocytes % (Auto) 0 % (0-0); Immature Granulocytes Auto 0.04 Thou/mm3 (0.00-0.00); Lymphocytes # (Auto) 1.6 Thou/mm3 (1.0-4.8); Lymphocytes % (Auto) 13 % (10-50); Mean Corpuscular HGB Conc 33.1 g/dl (31.0-37.0); Mean Corpuscular Hemoglobin 30.9 pg (25.0-35.0); Mean Corpuscular Volume 93 fL (80-100); Monocytes # (Auto) 1.2 Thou/mm3 (0.0-0.8); Monocytes % (Auto) 9 % (0-12); Neutrophils # (Auto) 9.7 Thou/mm3 (1.8-7.7); Neutrophils % (Auto) 76 % (37-80); Nucleated Red Blood Cell % 0 /100 WBC (0); Platelet Count 218 Thou/mm3 (140-440); RDW Standard Deviation 47.7 fL (36.4-46.3); White Blood Count 12.7 Thou/mm3 (3.6-11.0)
[2025-02-27 06:10] LABS: Alanine Aminotransferase 7 U/L (10-49); Albumin, Serum 3.4 gm/dL (3.5-5.0); Albumin/Globulin Ratio 1.4 (1.2-2.2); Alkaline Phosphatase 62 U/L (46-116); Anion Gap 10 (7-16); Aspartate Amino Transferase 18 U/L (0-34); BUN/Creatinine Ratio 12 Ratio (12-20); Bilirubin,Total 1.2 mg/dL (0.3-1.2); Blood Urea Nitrogen 6 mg/dL (9-23); C-Reactive Protein 33.4 mg/dL (0.0-0.9); Calcium (Corrected) 8.5 mg/dL (8.5-10.1); Carbon Dioxide 26.2 mMol/L (20.0-31.0); Chloride 103 mMol/L (98-107); Creatinine (Component) 0.5 mg/dL (0.6-1.3); Estimated Creatinine Clearance 185.2 mL/min (>60); Globulin 2.5 gm/dL (2.3-3.5); Glucose 109 mg/dL (74-106); Osmolality,Calculated 276 (275-295); Phosphorous 1.8 mg/dL (2.4-5.1); Potassium 3.7 mMol/L (3.4-5.1); Sodium 139 mMol/L (136-145); Total Protein 5.9 gm/dL (5.7-8.2); eGFR > 60 See Note
[2025-02-27] MEDS: FAMOTIDINE 20 MG TABLET PO (08:17)
[2025-02-27] MEDS: RINGERS LACTATED 1000 ML 1,000 ML 75 ML IV ×2 (08:17→19:39)
[2025-02-27] MEDS: cefTRIAXone/D5w 1gm IV premix 1 GM/50 ML BAG IV (08:17)
[2025-02-27] MEDS: AZITHROMYCIN INJ 500 MG in SODIUM CHLORIDE 0.9% 250 ML 250 ML 250 MG IV (08:17)
[2025-02-27] MEDS: gemfibroziL 600 MG TABLET PO ×2 (08:17→16:44)
[2025-02-27] MEDS: ENOXAPARIN SOD INJ 40 MG/0.4 ML SYRINGE SC (08:18)
--- NOTE | 2025-02-27 09:16 | PC.SS ---
Follow up note: Consult surgery for gallbladder removal. On IV fluids and IV antibiotic. Pt will return home upon d.c.
[2025-02-27] MEDS: ONDANSETRON INJ 2 MG/ML INJ 2 ML 4 MG IV (09:23)
[2025-02-27 10:02] LABS: Triglycerides 265 mg/dL (30-150)
[2025-02-27] MEDS: NAPH,KPH MBDB 1 PACKET (1.5 GM) 2 PACKET PO (10:34)
[2025-02-27] MEDS: POTASSIUM PHOS 22.5 MMOL in SODIUM CHLORIDE 0.9% 500 ML 500 ML 82.778 MMOL IV (10:34)
[2025-02-27] MEDS: HYDROcodone/APAP 5/325 TABLET 1 TAB PO ×3 (10:47→22:52)
--- NOTE | 2025-02-27 13:53 | ESPR_ITS ---
Documentation for date of: 02/27/25 Subjective Subjective Interval history: Patient examined at bedside today. No acute overnight events. Patient reports that her abdominal pain is improving. She says she feels a little nauseous. He says she wants to try full liquids today. She says that her pain is when she eats. No other complaints at this time. Exam Vital Signs Temp Pulse Resp BP Pulse Ox O2 Del Method O2 Flow Rate 98.9 F 102 H 17 125/99 H 96 Room Air 3 02/27/25 11:51 02/27/25 11:51 02/27/25 11:51 02/27/25 11:51 02/27/25 11:51 02/27/25 07:57 02/26/25 16:00 Narrative Exam General: AAOx3, in mild distress, obese HEENT: Dry mucous membranes, conjunctiva clear, EOMI, PERRLA, Cardiovascular: S1, S2, radial pulses +2 bilat, RRR Pulmonary: CTAB bilat no cough, no wheezing GI: Tenderness to palpitation in both RUQ and LUQ, no guarding, rigidity, rebound tenderness or distension Extremities: No presence of trace or pitting edema in lower extremities bilaterally, dorsalis pedis pulses +2 bilaterally Neuro: AAOx3, no focal motor or sensory deficits in the UE or LE bilat Psych: Good judgement, thought and behavior. Cooperative Objective Labs 02/28/25 05:37 02/28/25 05:37 Labs: Laboratory Results - last 24 hr 02/27/25 04:59 WBC 12.7 H RBC 3.20 L Hgb 9.9 L Hct 29.9 L MCV 93 MCH 30.9 MCHC 33.1 RDW Std Deviation 47.7 H Plt Count 218 Neut % (Auto) 76 Lymph % (Auto) 13 [place] % (Auto) 9 Eos % (Auto) 1 Baso % (Auto) 0 Neut # (Auto) 9.7 H Lymph # (Auto) 1.6 [place] # (Auto) 1.2 H Eos # (Auto) 0.2 Baso # (Auto) 0.0 Immature Gran # (Auto) 0.04 H Absolute Nucleated RBC 0.00 Immature Gran % 0 Nucleated RBC % 0 Sodium 139 Potassium 3.7 Chloride 103 Carbon Dioxide 26.2 Anion Gap 10 BUN 6 L Creatinine 0.5 L Estim Creat Clear Calc 185.2 eGFR > 60 BUN/Creatinine Ratio 12 Glucose 109 H Calculated Osmolality 276 Calcium 8.0 L Corrected Calcium 8.5 Phosphorus 1.8 L Magnesium 2.0 Total Bilirubin 1.2 D AST 18 ALT 7 L Alkaline Phosphatase 62 C-Reactive Prot, Quant 33.4 H Total Protein 5.9 Albumin 3.4 L Globulin 2.5 Albumin/Globulin Ratio 1.4 Triglycerides 265 H ABG Interpretation ABG results: 02/23/25 02/23/25 17:57 23:18 ABG pH 7.43 7.42 ABG pCO2 35 36 ABG pO2 64 L 56 L* ABG HCO3 23 23 ABG O2 Saturation 94 91 ABG Base Excess -1 -1 Quality Measures Quality Measures none Assessment & Plan Assessment Current Active Medications: Generic Name Dose Route Start Last Admin Trade Name Freq PRN Reason Stop Dose Admin Acetaminophen 650 mg 02/23/25 18:32 02/24/25 17:43 Acetaminophen 325 Mg Tablet PO 03/25/25 18:31 650 mg Q6H PRN Administration Fever >101.5 Acetaminophen 650 mg 02/23/25 18:32 02/27/25 03:02 Acetaminophen 325 Mg Tablet PO 03/25/25 18:31 650 mg Q6H PRN Administration PAIN SCALE 1-3 (mild Hydrocodone Bitart/Acetaminophen 1 tab 02/23/25 18:32 02/27/25 10:47 Hydrocodone/Apap 5/325 Tablet PO 02/28/25 18:31 1 tab Q6HR PRN Administration PAIN SCALE 4-6 (Moderate Albuterol/Ipratropium 3 ml 02/25/25 16:08 02/25/25 16:48 Albuterol/Ipratropium (Duoneb) Rt Kanika 3 Ml Nebu INH 03/27/25 18:59 3 ml Q6HRRT PRN Administration wheezing Dextrose 25 ml 02/23/25 22:05 Dextrose 50%-Water Inj 50 Ml Syringe IV 03/25/25 22:04 Q15MIN PRN Blood sugar between 50- 69 mg/dL Dextrose 50 ml 02/23/25 22:05 Dextrose 50%-Water Inj 50 Ml Syringe IV 03/25/25 22:04 Q15MIN PRN Blood sugar less than 50 mg/dL Enoxaparin Sodium 40 mg 02/24/25 09:00 02/27/25 08:18 Enoxaparin Sod Inj 40 Mg/0.4 Ml Syringe SC 03/10/25 08:59 40 mg QDAY ALAN Administration Famotidine 20 mg 02/25/25 09:00 02/27/25 08:17 Famotidine 20 Mg Tablet PO 03/27/25 08:59 20 mg QDAY ALAN Administration Gemfibrozil 600 mg 02/24/25 07:30 02/27/25 08:17 Gemfibrozil 600 Mg Tablet PO 03/26/25 07:29 600 mg BIDAC ALAN Administration Glucagon 1 mg 02/23/25 22:05 Glucagon Inj 1 Mg Vial IM 03/25/25 22:04 QDAY PRN Blood sugar less than 70 mg/dL Lactated Ringer's 1,000 mls @ 75 mls/hr 02/26/25 10:33 02/27/25 08:17 Lactated Ringers IV 03/28/25 10:32 75 mls/hr .[id number] ALAN Administration Ceftriaxone Sodium/Dextrose 1 gm in 50 mls @ 100 mls/hr 02/26/25 10:45 02/27/25 08:17 Rocephin/D5w 1gm Iv Premix IV 03/05/25 10:44 100 mls/hr QDAY ALAN Administration Azithromycin 500 mg/ Sodium 250 mls @ 250 mls/hr 02/26/25 10:41 02/27/25 08:17 Chloride IV 03/05/25 10:40 250 mls/hr QDAY ALAN Administration Potassium Phosphate 22.5 mmol/ 507.5 mls @ 82.778 mls/hr 02/27/25 08:48 02/27/25 10:34 Sodium Chloride IV 02/27/25 14:55 82.778 mls/hr X1 ONE Administration Ondansetron HCl 4 mg 02/23/25 18:32 02/27/25 09:23 Ondansetron Inj 2 Mg/Ml Inj 2 Ml IV 03/25/25 18:31 4 mg Q6H PRN Administration NAUSEA OR VOMITING Protocol Sennosides 1 tab 02/24/25 15:15 02/27/25 08:18 Senna/Docusate Sod 1 Tab Tablet PO 03/26/25 15:14 Not Given QDAY ALAN Protocol Simethicone 80 mg 02/26/25 09:42 02/26/25 10:40 Simethicone 80 Mg Chew PO 03/28/25 09:41 80 mg QID PRN Administration GAS Sodium Chloride 3 ml 02/24/25 15:08 Sodium Chloride Rt [place] 0.9% 3 Ml Nebu INH 03/26/25 15:07 PRN PRN SOLN Plan Assessment 29 year female with limited past medical history who was admitted on 02/23/2025 for acute pancreatitis secondary to hypertriglyceridemia. #Acute pancreatitis secondary to hypertryglyceridemia In the ED: Triglycerides 4071, lipase 635, CT abdomen pelvis with acute pancreatitis no pseudocyst. Liver ultrasound negative for cholelithiasis but does show borderline thickening of the gallbladder wall. A1c 5.2 % (02/24/2025) Patient is triglycerides today 357 Patient could also be having pancreatitis due to cholecystitis as well however we do know that patient has hypertriglyceridemia and this is the likely cause of pancreatitis Advancing diet as tolerated at this point, pt continues to improve her oral intake and has not vomitted Pt continues to have improving pain and is using less pain medicines Plan: ? Gemfibrozil 600 BID ? Full liquid diet, advance as tolerated ? Continue lactated Ringer's 75 cc/hour ? Dietary consulted, appreciate recs ? Pain control with Tylenol, and [place] as needed #Community acquired Pneumonia Patient continues to have leukocytosis, is complaining of a dry cough Chest x-ray did show some possible infiltrate Patient also spiked a fever yesterday of 100.9 Plan: ? Continue with Rocephin 1 g IV and Azithromycin 500 mg IV qday (02/26- ? DuoNebs every 6 H as needed #Biliary dyskinesia Ultrasound shows borderline gallbladder thickening, recommending HIDA or MRCP HIDA shows EJ of 23% At this time, will continue to treat pancreatitis with fluids, pain management and advancing diet, may consider further investigation later Plan: ? As above #Hypophosphatemia, improving #Hypocalcemia, improving #High anion gap metabolic acidosis, resolved Secondary to starvation ketosis due to decreased p.o. intake for the last 3 days. Beta hydroxybutyrate negative. Lactic acid 2.0. Remote history of alcohol use. No new medications prescribed. Phosphorus 1.8 today, likely related to poor oral intake Plan: ? Trend lytes and CMP ? Neutra-Phos 2 packets today, KPhos 22.5 mg x1 ? Dietitian on consult, appreciate recs #Oligomenorrhea Will hold OCPs during hospitalization and acute pancreatitis Plan: ? Outpatient follow-up #Health Maintenance Disposition: MedSurg DVT prophylaxis: Lovenox GI prophylaxis: Pepcid Diet: Full liquid CODE STATUS: Full Patient seen and care discussed with my attending physician, Dr. Lia Reyes, PGY-1 Attending Provider Attestation/Addendum I have examined the patient, reviewed labs and imaging findings, discussed the case with the resident(s), and reviewed entered orders. I agree with the plan of care as outlined in this note, with these additional summaries/recommendations: Patient seen at bedside. No acute overnight events. Patient reports overall pain is improved although not resolved and patient states it worsens when she attempts to drink liquids or eat food. We will continue to attempt to advance diet as tolerated. Sinus tachycardia persists although improving. Continue antiemetics and as needed pain medicines. Continue IV fluids. Pancreatitis most likely secondary to triglyceridemia which has now improved to 357 although there was concern for gallbladder wall thickening on admission and HIDA Scan completed which only showed abnormal gallbladder ejection fraction which is likely noncontributory. Continue gemfibrozil. Hypophosphatemia persists and replacement given again, repeat level in AM. Minimal hyperbilirubinemia present although possibly just secondary to edema of pancreatitis. Blood cultures show no growth at 48 hours. Continue IV antibiotics for community-acquired pneumonia seen on chest x-ray. Repeat hematology and chemistry panel in AM. Please see residents note for additional details and management. Dr. Lia MD
[2025-02-28] VITALS (12 sets, daily range): BP systolic 115–124; BP diastolic 73–92; PULSE 84–114; RESP 16–20; TEMP 36.1–37; O2SAT 94–97
[2025-02-28] MEDS: HYDROcodone/APAP 5/325 TABLET 1 TAB PO (06:15)
[2025-02-28 06:29] LABS: Basophils % (Auto) 0 % (0-2.5); Eosinophils # (Auto) 0.2 Thou/mm3 (0.0-0.5); Eosinophils % (Auto) 1 % (0-10); Hematocrit 30.8 % (36.0-46.0); Hemoglobin 10.5 g/dL (12.0-16.0); Immature Granulocytes % (Auto) 0 % (0-0); Immature Granulocytes Auto 0.05 Thou/mm3 (0.00-0.00); Lymphocytes % (Auto) 16 % (10-50); Mean Corpuscular HGB Conc 34.1 g/dl (31.0-37.0); Mean Corpuscular Hemoglobin 30.8 pg (25.0-35.0); Mean Corpuscular Volume 90 fL (80-100); Monocytes # (Auto) 1.2 Thou/mm3 (0.0-0.8); Monocytes % (Auto) 9 % (0-12); Neutrophils # (Auto) 9.4 Thou/mm3 (1.8-7.7); Neutrophils % (Auto) 73 % (37-80); Nucleated Red Blood Cell % 0 /100 WBC (0); Platelet Count 281 Thou/mm3 (140-440); RDW Standard Deviation 44.5 fL (36.4-46.3); Red Blood Count 3.41 Miln/mm3 (4.00-5.20); White Blood Count 12.9 Thou/mm3 (3.6-11.0)
[2025-02-28 07:25] LABS: Alanine Aminotransferase 10 U/L (10-49); Albumin, Serum 3.8 gm/dL (3.5-5.0); Albumin/Globulin Ratio 1.4 (1.2-2.2); Alkaline Phosphatase 75 U/L (46-116); Anion Gap 10 (7-16); Aspartate Amino Transferase 20 U/L (0-34); BUN/Creatinine Ratio 14 Ratio (12-20); Bilirubin,Total 1.1 mg/dL (0.3-1.2); Blood Urea Nitrogen 7 mg/dL (9-23); Calcium 8.2 mg/dL (8.3-10.6); Calcium (Corrected) 8.4 mg/dL (8.5-10.1); Carbon Dioxide 25.2 mMol/L (20.0-31.0); Chloride 100 mMol/L (98-107); Creatinine (Component) 0.5 mg/dL (0.6-1.3); Estimated Creatinine Clearance 185.1 mL/min (>60); Globulin 2.7 gm/dL (2.3-3.5); Glucose 95 mg/dL (74-106); Magnesium 1.8 mg/dL (1.6-2.6); Osmolality,Calculated 268 (275-295); Phosphorous 2.9 mg/dL (2.4-5.1); Sodium 135 mMol/L (136-145); Total Protein 6.5 gm/dL (5.7-8.2); eGFR > 60 See Note
[2025-02-28] MEDS: AZITHROMYCIN INJ 500 MG in SODIUM CHLORIDE 0.9% 250 ML 250 ML 250 MG IV (08:35)
[2025-02-28] MEDS: SENNA/DOCUSATE SOD 1 TAB TABLET PO (08:38)
[2025-02-28] MEDS: ENOXAPARIN SOD INJ 40 MG/0.4 ML SYRINGE SC (08:38)
[2025-02-28] MEDS: FAMOTIDINE 20 MG TABLET PO (08:38)
[2025-02-28] MEDS: cefTRIAXone/D5w 1gm IV premix 1 GM/50 ML BAG IV (08:39)
[2025-02-28] MEDS: gemfibroziL 600 MG TABLET PO ×2 (08:42→18:13)
[2025-02-28] MEDS: ONDANSETRON INJ 2 MG/ML INJ 2 ML 4 MG IV (10:13)
--- NOTE | 2025-02-28 11:09 | ESPR_ITS ---
<Statement entered by Dylon Calderon MD - 03/01/25 17:51> Patient was seen and examined at bedside, agree on the assessment and plan on this note. - Patient's plan and care discussed with my attending, Dr. Lia Calderon MD Internal Medicine PGY-2 Documentation for date of: 02/28/25 Subjective Subjective Interval history: Patient examined at bedside today. No acute overnight events. Patient reports her abdominal pain is getting better, however there is still some pain in the left upper quadrant. She is requesting to eat food as she think she is ready and does not want to continue being on liquid diet at this time. She denies any fevers, chills at this time. No other complaints at this time Exam Vital Signs Temp Pulse Resp BP Pulse Ox O2 Del Method O2 Flow Rate 97.6 F 111 H 16 119/90 H 95 Room Air 3 02/28/25 07:37 02/28/25 07:37 02/28/25 07:37 02/28/25 07:37 02/28/25 07:37 02/28/25 07:37 02/26/25 16:00 Narrative Exam General: AAOx3, in mild distress, obese HEENT: Dry mucous membranes, conjunctiva clear, EOMI, PERRLA, Cardiovascular: S1, S2, radial pulses +2 bilat, RRR Pulmonary: CTAB bilat no cough, no wheezing GI: Tenderness to palpitation in both RUQ and LUQ, no guarding, rigidity, rebound tenderness or distension Extremities: No presence of trace or pitting edema in lower extremities bilaterally, dorsalis pedis pulses +2 bilaterally Neuro: AAOx3, no focal motor or sensory deficits in the UE or LE bilat Psych: Good judgement, thought and behavior. Cooperative Objective Labs 03/01/25 04:44 03/01/25 04:44 Labs: Laboratory Results - last 24 hr 02/28/25 05:37 WBC 12.9 H RBC 3.41 L Hgb 10.5 L Hct 30.8 L MCV 90 MCH 30.8 MCHC 34.1 RDW Std Deviation 44.5 Plt Count 281 D Neut % (Auto) 73 Lymph % (Auto) 16 [place] % (Auto) 9 Eos % (Auto) 1 Baso % (Auto) 0 Neut # (Auto) 9.4 H Lymph # (Auto) 2.0 [place] # (Auto) 1.2 H Eos # (Auto) 0.2 Baso # (Auto) 0.0 Immature Gran # (Auto) 0.05 H Absolute Nucleated RBC 0.00 Immature Gran % 0 Nucleated RBC % 0 Sodium 135 L Potassium 4.0 Chloride 100 Carbon Dioxide 25.2 Anion Gap 10 BUN 7 L Creatinine 0.5 L Estim Creat Clear Calc 185.1 eGFR > 60 BUN/Creatinine Ratio 14 Glucose 95 Calculated Osmolality 268 L Calcium 8.2 L Corrected Calcium 8.4 L Phosphorus 2.9 Magnesium 1.8 Total Bilirubin 1.1 AST 20 ALT 10 Alkaline Phosphatase 75 D Total Protein 6.5 Albumin 3.8 Globulin 2.7 Albumin/Globulin Ratio 1.4 ABG Interpretation ABG results: 02/23/25 02/23/25 17:57 23:18 ABG pH 7.43 7.42 ABG pCO2 35 36 ABG pO2 64 L 56 L* ABG HCO3 23 23 ABG O2 Saturation 94 91 ABG Base Excess -1 -1 Quality Measures Quality Measures none Assessment & Plan Assessment Current Active Medications: Generic Name Dose Route Start Last Admin Trade Name Freq PRN Reason Stop Dose Admin Acetaminophen 650 mg 02/23/25 18:32 02/24/25 17:43 Acetaminophen 325 Mg Tablet PO 03/25/25 18:31 650 mg Q6H PRN Administration Fever >101.5 Acetaminophen 650 mg 02/23/25 18:32 02/27/25 03:02 Acetaminophen 325 Mg Tablet PO 03/25/25 18:31 650 mg Q6H PRN Administration PAIN SCALE 1-3 (mild Hydrocodone Bitart/Acetaminophen 1 tab 02/23/25 18:32 02/28/25 06:15 Hydrocodone/Apap 5/325 Tablet PO 02/28/25 18:31 1 tab Q6HR PRN Administration PAIN SCALE 4-6 (Moderate Albuterol/Ipratropium 3 ml 02/25/25 16:08 02/25/25 16:48 Albuterol/Ipratropium (Duoneb) Rt Kanika 3 Ml Nebu INH 03/27/25 18:59 3 ml Q6HRRT PRN Administration wheezing Dextrose 25 ml 02/23/25 22:05 Dextrose 50%-Water Inj 50 Ml Syringe IV 03/25/25 22:04 Q15MIN PRN Blood sugar between 50- 69 mg/dL Dextrose 50 ml 02/23/25 22:05 Dextrose 50%-Water Inj 50 Ml Syringe IV 03/25/25 22:04 Q15MIN PRN Blood sugar less than 50 mg/dL Enoxaparin Sodium 40 mg 02/24/25 09:00 02/28/25 08:38 Enoxaparin Sod Inj 40 Mg/0.4 Ml Syringe SC 03/10/25 08:59 40 mg QDAY ALAN Administration Famotidine 20 mg 02/25/25 09:00 02/28/25 08:38 Famotidine 20 Mg Tablet PO 03/27/25 08:59 20 mg QDAY ALAN Administration Gemfibrozil 600 mg 02/24/25 07:30 02/28/25 08:42 Gemfibrozil 600 Mg Tablet PO 03/26/25 07:29 600 mg BIDAC ALAN Administration Glucagon 1 mg 02/23/25 22:05 Glucagon Inj 1 Mg Vial IM 03/25/25 22:04 QDAY PRN Blood sugar less than 70 mg/dL Lactated Ringer's 1,000 mls @ 75 mls/hr 02/26/25 10:33 02/27/25 19:39 Lactated Ringers IV 03/28/25 10:32 75 mls/hr .[id number] ALAN Administration Ceftriaxone Sodium/Dextrose 1 gm in 50 mls @ 100 mls/hr 02/26/25 10:45 02/28/25 08:39 Rocephin/D5w 1gm Iv Premix IV 03/05/25 10:44 100 mls/hr QDAY ALAN Administration Azithromycin 500 mg/ Sodium 250 mls @ 250 mls/hr 02/26/25 10:41 02/28/25 08:35 Chloride IV 03/05/25 10:40 250 mls/hr QDAY ALAN Administration Ondansetron HCl 4 mg 02/23/25 18:32 02/28/25 10:13 Ondansetron Inj 2 Mg/Ml Inj 2 Ml IV 03/25/25 18:31 4 mg Q6H PRN Administration NAUSEA OR VOMITING Protocol Sennosides 1 tab 02/24/25 15:15 02/28/25 08:38 Senna/Docusate Sod 1 Tab Tablet PO 03/26/25 15:14 1 tab QDAY ALAN Administration Protocol Simethicone 80 mg 05/15/25 09:42 02/26/25 10:40 Simethicone 80 Mg Chew PO 03/28/25 09:41 80 mg QID PRN Administration GAS Sodium Chloride 3 ml 02/24/25 15:08 Sodium Chloride Rt [place]ika 0.9% 3 Ml Nebu INH 03/26/25 15:07 PRN PRN SOLN Plan Assessment 29 year female with limited past medical history who was admitted on 02/23/2025 for acute pancreatitis secondary to hypertriglyceridemia. #Acute pancreatitis secondary to hypertryglyceridemia In the ED: Triglycerides 4071, lipase 635, CT abdomen pelvis with acute pancreatitis no pseudocyst. Liver ultrasound negative for cholelithiasis but does show borderline thickening of the gallbladder wall. A1c 5.2 % (02/24/2025) Patient is triglycerides today 357 Patient could also be having pancreatitis due to cholecystitis as well however we do know that patient has hypertriglyceridemia and this is the likely cause of pancreatitis Advancing diet as tolerated at this point, pt continues to improve her oral intake and has not vomitted Pt continues to have improving pain and is using less pain medicines 02/28/2025: Patient reports she continues to have some pain in her upper quadrant both on left and right side, we will advance her diet and consider scanning her belly if she continues to have pain or is not able to tolerate food Plan: ? Gemfibrozil 600 BID ? Regular diet ? Dietary consulted, appreciate recs ? Pain control with Tylenol, and [place] as needed #Community acquired Pneumonia Patient continues to have leukocytosis, is complaining of a dry cough Chest x-ray did show some possible infiltrate Patient also spiked a fever yesterday of 100.9 Plan: ? Continue with Rocephin 1 g IV and Azithromycin 500 mg IV qday (02/26- ? DuoNebs every 6 H as needed #Biliary dyskinesia Ultrasound shows borderline gallbladder thickening, recommending HIDA or MRCP HIDA shows EJ of 23% At this time, will continue to treat pancreatitis with fluids, pain management and advancing diet, may consider further investigation later Plan: ? As above #Hypophosphatemia, resolved #Hypocalcemia, improving #High anion gap metabolic acidosis, resolved Secondary to starvation ketosis due to decreased p.o. intake for the last 3 days. Beta hydroxybutyrate negative. Lactic acid 2.0. Remote history of alcohol use. No new medications prescribed. Plan: ? Trend lytes and CMP ? Dietitian on consult, appreciate recs #Oligomenorrhea Will hold OCPs during hospitalization and acute pancreatitis Plan: ? Outpatient follow-up #Health Maintenance Disposition: MedSurg DVT prophylaxis: Lovenox GI prophylaxis: Pepcid Diet: Regular CODE STATUS: Full Patient seen and care discussed with my attending physician, Dr. Fitzgerald and my senior resident, Dr. Kvng Reyes, PGY-1 Attending Provider Attestation/Addendum I have examined the patient, reviewed labs and imaging findings, discussed the case with the resident(s), and reviewed entered orders. I agree with the plan of care as outlined in this note, with these additional summaries/recommendations: Patient seen at bedside. No acute overnight events. Patient reports overall pain is improved although not resolved and patient states it worsens when she attempts to drink liquids or eat food. We will continue to attempt to advance diet as tolerated. Sinus tachycardia persists although improving. Continue antiemetics and as needed pain medicines. Pancreatitis most likely secondary to triglyceridemia which has now improved to 357 although there was concern for gallbladder wall thickening on admission and HIDA Scan completed which only showed abnormal gallbladder ejection fraction which is likely noncontributory. Continue gemfibrozil. Blood cultures show no growth at 48 hours. Continue IV antibiotics for community-acquired pneumonia seen on chest x-ray. Repeat hematology and chemistry panel in AM. Please see residents note for additional details and management. Dr. Lia MD
[2025-02-28] MEDS: ACETAMINOPHEN 325 MG TABLET 650 MG PO (18:12)
[2025-03-01] VITALS: BP 123/87; PULSE 103; PULSE 128; RESP 18; TEMP 36.9; O2SAT 94
[2025-03-01] MEDS: bisacodyL 10 MG SUPP PR (00:15)
[2025-03-01] MEDS: ACETAMINOPHEN 325 MG TABLET 650 MG PO (01:20)
[2025-03-01] MEDS: lorataDINE 10 MG TABLET PO (03:28)
[2025-03-01] MEDS: MONTELUKAST SODIUM 10 MG TABLET PO (03:29)
[2025-03-01 04:00] VITALS: BP 127/78; PULSE 100; PULSE 92; RESP 18; TEMP 36.2; O2SAT 97
[2025-03-01 05:44] LABS: Basophils % (Auto) 0 % (0-2.5); Eosinophils # (Auto) 0.1 Thou/mm3 (0.0-0.5); Eosinophils % (Auto) 1 % (0-10); Hematocrit 30.7 % (36.0-46.0); Hemoglobin 10.4 g/dL (12.0-16.0); Immature Granulocytes % (Auto) 1 % (0-0); Lymphocytes % (Auto) 15 % (10-50); Mean Corpuscular HGB Conc 33.9 g/dl (31.0-37.0); Mean Corpuscular Hemoglobin 31.1 pg (25.0-35.0); Mean Corpuscular Volume 92 fL (80-100); Monocytes # (Auto) 1.4 Thou/mm3 (0.0-0.8); Monocytes % (Auto) 10 % (0-12); Neutrophils # (Auto) 10.3 Thou/mm3 (1.8-7.7); Neutrophils % (Auto) 74 % (37-80); Nucleated Red Blood Cell % 0 /100 WBC (0); Platelet Count 292 Thou/mm3 (140-440); Red Blood Count 3.34 Miln/mm3 (4.00-5.20); White Blood Count 13.9 Thou/mm3 (3.6-11.0)
[2025-03-01 05:53] VITALS: BMI 37.2
[2025-03-01 06:32] LABS: Alanine Aminotransferase 10 U/L (10-49); Albumin, Serum 3.9 gm/dL (3.5-5.0); Albumin/Globulin Ratio 1.4 (1.2-2.2); Alkaline Phosphatase 77 U/L (46-116); Anion Gap 9 (7-16); Aspartate Amino Transferase 21 U/L (0-34); BUN/Creatinine Ratio 12 Ratio (12-20); Bilirubin,Total 0.7 mg/dL (0.3-1.2); Blood Urea Nitrogen 7 mg/dL (9-23); Calcium 8.5 mg/dL (8.3-10.6); Calcium (Corrected) 8.6 mg/dL (8.5-10.1); Carbon Dioxide 26.7 mMol/L (20.0-31.0); Chloride 100 mMol/L (98-107); Creatinine (Component) 0.6 mg/dL (0.6-1.3); Estimated Creatinine Clearance 159.5 mL/min (>60); Globulin 2.8 gm/dL (2.3-3.5); Glucose 99 mg/dL (74-106); Osmolality,Calculated 269 (275-295); Phosphorous 3.5 mg/dL (2.4-5.1); Potassium 3.7 mMol/L (3.4-5.1); Sodium 136 mMol/L (136-145); Total Protein 6.7 gm/dL (5.7-8.2); eGFR > 60 See Note
[2025-03-01 07:03] VITALS: PULSE 95; RESP 18; O2SAT 97
[2025-03-01 07:23] VITALS: BP 136/92; PULSE 99; RESP 16; TEMP 36.4; O2SAT 94
--- NOTE | 2025-03-01 07:52 | ESPR_ITS ---
Documentation for date of: 03/01/25 Subjective Subjective Interval history: Pt examined at bedside today. No acute overnight events. Pt reports she is doing okay. Still experiencing some pain. She has not vomitted. No other complaints at this time. Exam Vital Signs Temp Pulse Resp BP Pulse Ox O2 Del Method O2 Flow Rate 97.5 F 99 16 136/92 H 94 L Room Air 3 03/01/25 07:23 03/01/25 07:23 03/01/25 07:23 03/01/25 07:23 03/01/25 07:23 03/01/25 07:23 02/26/25 16:00 Narrative Exam General: AAOx3, in mild distress, obese HEENT: Dry mucous membranes, conjunctiva clear, EOMI, PERRLA, Cardiovascular: S1, S2, radial pulses +2 bilat, RRR Pulmonary: CTAB bilat no cough, no wheezing GI: Tenderness to palpitation in both RUQ and LUQ, no guarding, rigidity, rebound tenderness or distension Extremities: No presence of trace or pitting edema in lower extremities bilaterally, dorsalis pedis pulses +2 bilaterally Neuro: AAOx3, no focal motor or sensory deficits in the UE or LE bilat Psych: Good judgement, thought and behavior. Cooperative Objective Labs 03/01/25 04:44 03/01/25 04:44 Labs: Laboratory Results - last 24 hr 03/01/25 04:44 WBC 13.9 H RBC 3.34 L Hgb 10.4 L Hct 30.7 L MCV 92 MCH 31.1 MCHC 33.9 RDW Std Deviation 44.0 Plt Count 292 Neut % (Auto) 74 Lymph % (Auto) 15 [place] % (Auto) 10 Eos % (Auto) 1 Baso % (Auto) 0 Neut # (Auto) 10.3 H Lymph # (Auto) 2.0 [place] # (Auto) 1.4 H Eos # (Auto) 0.1 Baso # (Auto) 0.0 Immature Gran # (Auto) 0.10 H Absolute Nucleated RBC 0.00 Immature Gran % 1 H Nucleated RBC % 0 Sodium 136 Potassium 3.7 Chloride 100 Carbon Dioxide 26.7 Anion Gap 9 BUN 7 L Creatinine 0.6 Estim Creat Clear Calc 159.5 eGFR > 60 BUN/Creatinine Ratio 12 Glucose 99 Calculated Osmolality 269 L Calcium 8.5 Corrected Calcium 8.6 Phosphorus 3.5 Magnesium 2.0 Total Bilirubin 0.7 AST 21 ALT 10 Alkaline Phosphatase 77 Total Protein 6.7 Albumin 3.9 Globulin 2.8 Albumin/Globulin Ratio 1.4 ABG Interpretation ABG results: 02/23/25 02/23/25 17:57 23:18 ABG pH 7.43 7.42 ABG pCO2 35 36 ABG pO2 64 L 56 L* ABG HCO3 23 23 ABG O2 Saturation 94 91 ABG Base Excess -1 -1 Quality Measures Quality Measures none Assessment & Plan Assessment Current Active Medications: Generic Name Dose Route Start Last Admin Trade Name Freq PRN Reason Stop Dose Admin Acetaminophen 650 mg 02/23/25 18:32 02/24/25 17:43 Acetaminophen 325 Mg Tablet PO 03/25/25 18:31 650 mg Q6H PRN Administration Fever >101.5 Acetaminophen 650 mg 02/23/25 18:32 03/01/25 01:20 Acetaminophen 325 Mg Tablet PO 03/25/25 18:31 650 mg Q6H PRN Administration PAIN SCALE 1-3 (mild Albuterol/Ipratropium 3 ml 02/25/25 16:08 02/25/25 16:48 Albuterol/Ipratropium (Duoneb) Rt [place] 3 Ml Nebu INH 03/27/25 18:59 3 ml Q6HRRT PRN Administration wheezing Dextrose 25 ml 02/23/25 22:05 Dextrose 50%-Water Inj 50 Ml Syringe IV 03/25/25 22:04 Q15MIN PRN Blood sugar between 50- 69 mg/dL Dextrose 50 ml 02/23/25 22:05 Dextrose 50%-Water Inj 50 Ml Syringe IV 03/25/25 22:04 Q15MIN PRN Blood sugar less than 50 mg/dL Enoxaparin Sodium 40 mg 02/24/25 09:00 02/28/25 08:38 Enoxaparin Sod Inj 40 Mg/0.4 Ml Syringe SC 03/10/25 08:59 40 mg QDAY ALAN Administration Famotidine 20 mg 02/25/25 09:00 02/28/25 08:38 Famotidine 20 Mg Tablet PO 03/27/25 08:59 20 mg QDAY ALAN Administration Gemfibrozil 600 mg 02/24/25 07:30 02/28/25 18:13 Gemfibrozil 600 Mg Tablet PO 03/26/25 07:29 600 mg BIDAC ALAN Administration Glucagon 1 mg 02/23/25 22:05 Glucagon Inj 1 Mg Vial IM 03/25/25 22:04 QDAY PRN Blood sugar less than 70 mg/dL Ceftriaxone Sodium/Dextrose 1 gm in 50 mls @ 100 mls/hr 02/26/25 10:45 02/28/25 09:09 Rocephin/D5w 1gm Iv Premix IV 03/05/25 10:44 Infused QDAY ALAN Infusion Azithromycin 500 mg/ Sodium 250 mls @ 250 mls/hr 02/26/25 10:41 02/28/25 09:35 Chloride IV 03/05/25 10:40 Infused QDAY ALAN Infusion Loratadine 10 mg 03/01/25 03:20 03/01/25 03:28 Loratadine 10 Mg Tablet PO 03/31/25 03:19 10 mg QDAY ALAN Administration Montelukast Sodium 10 mg 03/01/25 03:25 03/01/25 03:29 Montelukast Sodium 10 Mg Tablet PO 03/31/25 03:24 10 mg HS ALAN Administration Ondansetron HCl 4 mg 02/23/25 18:32 02/28/25 10:13 Ondansetron Inj 2 Mg/Ml Inj 2 Ml IV 03/25/25 18:31 4 mg Q6H PRN Administration NAUSEA OR VOMITING Protocol Sennosides 1 tab 02/24/25 15:15 02/28/25 08:38 Senna/Docusate Sod 1 Tab Tablet PO 03/26/25 15:14 1 tab QDAY ALAN Administration Protocol Simethicone 80 mg 02/26/25 09:42 02/26/25 10:40 Simethicone 80 Mg Chew PO 03/28/25 09:41 80 mg QID PRN Administration GAS Sodium Chloride 3 ml 02/24/25 15:08 Sodium Chloride Rt [place] 0.9% 3 Ml Nebu INH 03/26/25 15:07 PRN PRN SOLN Plan Assessment 29 year female with limited past medical history who was admitted on 02/23/2025 for acute pancreatitis secondary to hypertriglyceridemia. #Acute pancreatitis secondary to hypertryglyceridemia In the ED: Triglycerides 4071, lipase 635, CT abdomen pelvis with acute pancreatitis no pseudocyst. Liver ultrasound negative for cholelithiasis but does show borderline thickening of the gallbladder wall. A1c 5.2 % (02/24/2025) Patient is triglycerides today 357 Patient could also be having pancreatitis due to cholecystitis as well however we do know that patient has hypertriglyceridemia and this is the likely cause of pancreatitis Advancing diet as tolerated at this point, pt continues to improve her oral intake and has not vomitted Pt continues to have improving pain and is using less pain medicines 02/28/2025: Patient reports she continues to have some pain in her upper quadrant both on left and right side, we will advance her diet and consider scanning her belly if she continues to have pain or is not able to tolerate food 03/01/2025: May consider ordering a CT scan, pt is still having some abdominal pain Plan: ? Gemfibrozil 600 BID ? Regular diet ? Dietary consulted, appreciate recs ? Pain control with Tylenol, and [place] as needed ? May consider CT scan of abdomen #Community acquired Pneumonia Patient continues to have leukocytosis, is complaining of a dry cough Chest x-ray did show some possible infiltrate Patient also spiked a fever yesterday of 100.9 Plan: ? Continue with Rocephin 1 g IV and Azithromycin 500 mg IV qday (02/26- ? DuoNebs every 6 H as needed #Biliary dyskinesia Ultrasound shows borderline gallbladder thickening, recommending HIDA or MRCP HIDA shows EJ of 23% At this time, will continue to treat pancreatitis with fluids, pain management and advancing diet, may consider further investigation later Plan: ? As above #Hypophosphatemia, resolved #Hypocalcemia, improving #High anion gap metabolic acidosis, resolved Secondary to starvation ketosis due to decreased p.o. intake for the last 3 days. Beta hydroxybutyrate negative. Lactic acid 2.0. Remote history of alcohol use. No new medications prescribed. Plan: ? Trend lytes and CMP ? Dietitian on consult, appreciate recs #Oligomenorrhea Will hold OCPs during hospitalization and acute pancreatitis Plan: ? Outpatient follow-up #Health Maintenance Disposition: MedSurg DVT prophylaxis: Lovenox GI prophylaxis: Pepcid Diet: Regular CODE STATUS: Full Patient seen and care discussed with my attending physician, Dr. Lia Reyes, PGY-1 Attending Provider Attestation/Addendum I have examined the patient, reviewed labs and imaging findings, discussed the case with the resident(s), and reviewed entered orders. I agree with the plan of care as outlined in this note. Dr. Lia MD
[2025-03-01] MEDS: gemfibroziL 600 MG TABLET PO (08:18)
[2025-03-01] MEDS: FAMOTIDINE 20 MG TABLET PO (08:19)
[2025-03-01] MEDS: ENOXAPARIN SOD INJ 40 MG/0.4 ML SYRINGE SC (08:19)
[2025-03-01] MEDS: cefTRIAXone/D5w 1gm IV premix 1 GM/50 ML BAG IV (08:19)
--- NOTE | 2025-03-01 16:49 | PC.NURSE ---
[facility] on 03/01/2025 from [id number].
--- NOTE | 2025-03-01 17:50 | ESDS_ITS ---
<Statement entered by Dylon Calderon MD - 03/02/25 16:36> Patient was seen and examined at bedside. Agree with assessment and plan at this time - Patient's plan and care discussed with my attending, Dr. Lia Calderon MD Internal Medicine PGY-2 Planned Discharge Date 03/01/25 DS: Providers Provider Date of admission: 02/23/25 18:32 Primary care physician: Asim Barnard MD Admitting Provider: Anne Varma MD Attending Provider on Admission: Sy Fitzgerald MD Consults: 02/23/25 23:25 Referral [place] Routine Comment: 02/24/25 09:46 Referral Registered Dietitian Urgent Comment: Instructions: On admission patient-hypertriglyceridemia & acute pancreatitis and would benefit from advice on low fat diet Attending Provider on DC: Sy Fitzgerald MD Discharging Provider: Sy Fitzgerald MD DS: Diagnosis Problem List Completed Was Problem List Reviewed/Reconciled?: Yes Hospital Course Hospital Course Hospital course: Joi is a 29 years old female with PMHx of Obesity and Oligomenorrhea who was admitted to [facility] on 02/23/2025 for acute pancreatitis secondary to hypertriglyceridemia. When she presented to the ED ED she was tachycardic, had temp of 100.3 F. Lab results were significant for WBC of 16.6, Na 133, Bicarbonate 12.2, Anion gap 23 and lipase 635. Abdomen/pelvis CT showed Acute pancreatitis without pseudocyst, possible gallbladder sludge vs small stones. Calcium was 8.3. Lipid panel was pending prior to admission. Once lipid panel had come out, triglycerides were in the 4000's, and patient was upgraded to ICU for insulin drip and fluids to manage acute pancreatitis secondary to hypertriglyceridemia. Patient had denied a history of familial hypertriglycer idemia and was recommended to follow-up outpatient for genetic testing. She was started on gemfibrozil after completing insulin drip, and continue to be put on fluids. After being downgraded on the floors, patient continued to have some refractory pain and was requiring additional pain medicines. There was concern for cholecystitis and HIDA had showed biliary dyskinesia, ejection fraction around 23%. Patient was recommended to follow-up outpatient due to no active cholecystitis. Patient has spiked a fever one of the days during admission and it was discovered that patient had pneumonia and was started on Rocephin and azithromycin and patient continued to improve. With continuing of fluids, pain management, diet was advanced and patient continued to improve. Patient then discharged once tolerating oral food, minimal pain and was having bowel movements. he was then recommended to follow-up outpatient for further management of her medical problems. Discharge Instructions: Follow-up with your PCP within 1 week, call the [facility] to make an appointment Take your medicines as prescribed We prescribed you a new medicine called gemfibrozil 500 mg twice a day, take this medicine and let your PCP know you are taking this medicine as this for your hypertriglycerides Finish your abx course of Augmentin and Azithromycin as prescribed Take [place] as needed, do not exceed more than 3 tablets in one day in a 24 hour period Return to ED if symptoms worsen return Problem List: #Acute pancreatitis secondary to hypertryglyceridemia #Community acquired Pneumonia #Biliary dyskinesia #Hypophosphatemia, resolved #Hypocalcemia, improving #High anion gap metabolic acidosis, resolved #Oligomenorrhea Discharge summary was reviewed with my attending Dr. Fitzgerald and my senior resident Dr. Kvng Reyes, PGY-1 Time Spent with Patient Time attestation: Total time spent providing and/or coordinating discharge services: Time spent: Greater than 30 minutes Exam Vital Signs Temp Pulse Resp BP Pulse Ox O2 Del Method O2 Flow Rate 97.5 F 99 16 136/92 H 94 L Room Air 3 03/01/25 07:23 03/01/25 07:23 03/01/25 07:23 03/01/25 07:23 03/01/25 07:23 03/01/25 07:23 02/26/25 16:00 Narrative Exam General: AAOx3, in mild distress, obese HEENT: Dry mucous membranes, conjunctiva clear, EOMI, PERRLA, Cardiovascular: S1, S2, radial pulses +2 bilat, RRR Pulmonary: CTAB bilat no cough, no wheezing GI: Tenderness to palpitation in both RUQ and LUQ, no guarding, rigidity, rebound tenderness or distension Extremities: No presence of trace or pitting edema in lower extremities bilaterally, dorsalis pedis pulses +2 bilaterally Neuro: AAOx3, no focal motor or sensory deficits in the UE or LE bilat Psych: Good judgement, thought and behavior. Cooperative Discharge Plan Plan Patient Disposition: HOME (Self Care) Care Plan Goals: Discharge Instructions: Follow-up with your PCP within 1 week Take your medicines as prescribed We prescribed you a new medicine called gemfibrozil 500 mg twice a day, take this medicine and let your PCP know you are taking this medicine as this for your hypertriglycerides Return to ED if symptoms worsen return Prescriptions/Referrals Prescriptions/Med Rec: New gemfibrozil [Lopid] 600 mg tablet 600 mg PO BID 30 Days Qty: 60 0RF Rx Instructions: Take one tablet by mouth twice a day Continued norethindrone-e.estradiol-iron [Microgestin Fe 1.5/30 (28)] 1.5 mg-30 mcg (21)/75 mg (7) tablet 1 tab PO DAILY famotidine 20 mg tablet 20 mg PO BID montelukast 10 mg tablet 10 mg PO HS cetirizine 10 mg tablet 10 mg PO BID Patient Comments: TAKE ONE TABLET BY MOUTH TWICE A DAY FOR HIVES Referrals: Asim Barnard MD [Primary Care Provider] - Patient/Caregiver Discharge Instructions Education Materials: Abdominal Pain, ED Pancreatitis Print Language: [place] Quality Discharge Quality Measures VTE prophylaxis (Lovenox ) Attestestation MD Attestation I have examined the patient, reviewed labs and imaging findings, discussed the case with the resident(s), and reviewed entered orders. I agree with the plan of care as outlined in this note. Time Spent: [address] Lia MD
== END 2025-03-01 11:38 | disposition home or self-care (01) | DRG 282 ==
LOC: SERX 17:44 → SERHOLD 18:54 → S3SX 20:38 → S2SX 22:46 → S3NX 02-24 18:11 → S3SX 02-28 21:11
PROVIDERS: Nurse Practitioner Family; Student in an Organized Health Care Education/Training Program; Admitting Provider Student in an Organized Health Care Education/Training Program; Emergency Provider Family Medicine; PCP Family Medicine; Visit Provider Student in an Organized Health Care Education/Training Program
DX: K85.90 Acute pancreatitis without necrosis or infection, unspecified (principal); F17.290 Nicotine dependence, other tobacco product, uncomplicated; E66.812 Obesity, class 2; E78.1 Pure hyperglyceridemia; E83.39 Other disorders of phosphorus metabolism; E83.51 Hypocalcemia; E87.20 Acidosis, unspecified; J18.9 Pneumonia, unspecified organism; K82.8 Other specified diseases of gallbladder; J45.909 Unspecified asthma, uncomplicated; N91.5 Oligomenorrhea, unspecified; K76.0 Fatty (change of) liver, not elsewhere classified; Z98.891 History of uterine scar from previous surgery; Z68.37 Body mass index [BMI] 37.0-37.9, adult
CPT/HCPCS: 36415; 36600; 71045; 71046; 74176; 76705; 78227; 80053; 80061; 80069; 80307; 80320; 81025; 82010; 82803; 82947; 83036; 83605; 83690; 83735; 83880; 84100; 84132; 84478; 84484; 84703; 85025; 86140; 87040; 93005; 93225; 94640; 94664; 96361; 96374; 96375; 99285; A9270; A9537; J0456; J0612; J0696; J1171; J1650; J1815; J2270; J2405; J2805; J3475; J3480; J7030; J7040; J7050; J7120; G0480

== ENCOUNTER 2025-03-05 11:34 | Outpatient (AMB) | payer MEDICAID, SELFPAY ==
[2025-03-05 11:39] VITALS: BP 132/88; PULSE 110; RESP 18; TEMP 36.4; O2SAT 96; BMI 36.9
--- NOTE | 2025-03-05 11:39 | PD.RESCLINIC ---
Vital Signs 03/05/25 11:39 Height 1.55 m Height Method Stated Weight 88.621 kg Weight Measurement Method Standing Scale BMI 36.9 BP 132/88 H Blood Pressure Source Automatic Cuff Blood Pressure Location Right Upper Arm Position Sitting Respiration 18 Pulse 110 H Pulse Source Monitor Temp 97.5 F Temp Source Temporal Artery Scan Pulse Oximetry (%) 96 Oxygen Delivery Method Room Air Allergies/Meds Allergies & Medications Allergies No Known Allergies Allergy (Verified 03/06/25 14:29) Medication Reconciliation famotidine 20 mg tablet 20 mg PO BID 02/25/25 [History Confirmed 03/06/25] montelukast 10 mg tablet 10 mg PO HS 02/25/25 [History Confirmed 03/06/25] norethindrone 1.5 mg-ethinyl estradiol 30 mcg(21)/iron 75 mg(7) tablet (Microgestin Fe 1.5/30 (28)) 1 tab PO DAILY 02/25/25 [History Confirmed 03/06/25] gemfibrozil 600 mg tablet (Lopid) 600 mg PO BID 1 month #60 tabs 02/28/25 [Rx Confirmed 03/06/25] cetirizine 10 mg tablet 10 mg PO BID 03/01/25 [History Confirmed 03/06/25] MA Intake Visit Data Collection New Patient or Established: Established Patient (seen at [facility] within 3 years) Seen by Clinical Staff ONLY (RN/MA): No Pain Present Currently: No Pain scale:: 0 Pain Scale Used: [place]-Tinsley/Numerical Supervisor Public Message Service Required: No PCP or OBGYN visit in last 3 months: Yes Hx Now: No Do You Feel Safe at Home: Yes Authorities Contacted: N/A Smoking Status Smoking Status: Former smoker Immunization / Flu Flu Vaccine in the Last 12 Months: No Flu Vaccine Exclusion Criteria: No Exclusion Criteria Past Medical History Past Medical History NEUROLOGIC: Negative Neurological Disorders or Seizures CARDIAC: Negative Cardiac Disorders or Congestive Heart Failure RESPIRATORY: Positive Asthma (INHALER NEEDED); Negative Chronic Obstructive Pulmonary Disease (COPD), Bronchitis, Emphysema, Pneumonia, Pulmonary Fibrosis, Cystic Fibrosis, Tuberculosis, Pulmonary Embolism, Pulmonary Edema or Sleep Apnea GASTROINTESTINAL: Positive Gastrointestinal Disorders (GASTRITIS); Negative Hepatitis or Colorectal Cancer GENITOURINARY: Negative Genitourinary Disorders, Renal Disease or Prostate Cancer REPRODUCTIVE: Negative Breast Cancer, Endometriosis, Pelvic Inflammatory Disease, Previous Pregnancies, Testicular Cancer or Uterine Prolapse MUSCULOSKELETAL: Negative Bone Cancer or Carpal Tunnel Syndrome ENT: Negative Cataracts ENDOCRINE: Negative Endocrine Disorders, Diabetes Mellitus Type 1 or Diabetes Mellitus Type 2 HEMATOLOGIC: Positive Blood Disorders and Anemia (CURRENT IRON USE); Negative Leukemia, Hemophilia, Thalassemia, Sickle Cell Disease or Clotting Problems OTHER HISTORY: Negative Hospitalization, Down Syndrome, Developmental Delay, Shingles, Falls, Blood Transfusions, Blood Transfusion Reaction, Anesthesia Reactions, Organ Transplant, Chemotherapy, Radiation Therapy, Hyperbaric Therapy, MRSA, VRSA, Vancomycin-Resistant Enterococci, Human Immunodeficiency Virus (HIV), Chicken Pox, Measles, Mumps, Rubella (Slovenian Measles), Pertussis, Clostridium Difficile, Cancer, Breast Cancer, Cervical Cancer, Colorectal Cancer, Lung Cancer, Ovarian Cancer, Prostate Cancer or Testicular Cancer Family History FAMILY HISTORY: Positive Family Cardiac Disorders (FATHER HIGH BLOOD PRESSURE) and Family Cancer (GRANDMOTHER MATERNAL CANCER); Negative Family Psychiatric Problems, Family Respiratory Disorders, Family Gastrointestinal Problems, Family Surgery or Family Anesthesia Reaction Surgical History SURGICAL: Negative Endocrine Surgery, Thyroidectomy, Ear Surgery, Tympanostomy Tube, Eye Surgery, Nose Surgery, Oral Surgery, Tonsillectomy, Adenoidectomy, Cochlear Implant, Corneal Transplant, Throat Surgery, Abdominal Surgery, Tracheostomy, Gastric Bypass Surgery, Gastrostomy, Bowel Surgery, Nephrectomy, Transurethral Resection, Joint Replacement, Amputation, Open Reduction Internal Fixation, Arthroscopy, Neurologic Surgery, Brain Shunt, Mastectomy, Lumpectomy, Hysterectomy, Tubal Ligation, Section, Vasectomy or Organ Transplant Social History SMOKING STATUS: Smoking status: Former smoker SECOND HAND EXPOSURE: second hand exposure: No ALCOHOL: Alcohol Intake: Current ALCOHOL FREQUENCY: Alcohol Intake Frequency: holidays/special occasions only HOUSING: Housing: House LIVES WITH: Lives With: Spouse Patient Gene Dang Social History Living Situation History Housing: House Tobacco History Smoking Status: Former smoker Second Hand Smoke Exposure: No Alcohol History Alcohol Intake: Current Alcohol Intake Frequency: holidays/special occasions only Domestic Abuse History Do You Feel Safe at Home: Yes Review of Systems Report any current symptoms Only answer those that you have currently: Past Medical History Past Medical History Have you ever been diagnosed with any of the following: Neurological Problems Seizures: No Cardiology Problems Congestive Heart Failure: No Respiratory Problems Chronic Obstructive Pulmonary Disease (COPD): No Asthma: Yes (INHALER NEEDED) Bronchitis: No Emphysema: No Pneumonia: No Pulmonary Fibrosis: No Tuberculosis: No Pulmonary Embolism: No Pulmonary Edema: No Sleep Apnea: No Stomache/Intestinal Problems Hepatitis: No Colorectal Cancer: No Genital/Urinary Problems Renal Disease: No Reproductive Problems Breast Cancer: No Endometriosis: No Pelvic Inflammatory Disease: No Previous Pregnancies: No Uterine Prolapse: No Musculoskeletal Problems Bone Cancer: No Carpal Tunnel Syndrome: No Head,Eye,Nose,Throat Problems Cataracts: No Endocrine Problems Diabetes Mellitus Type 1: No Diabetes Mellitus Type 2: No Blood Problems Anemia: Yes (CURRENT IRON USE) Leukemia: No Hemophilia: No Thalassemia: No Sickle Cell Disease: No Clotting Problems: No Other Problems Hospitalization: No Down Syndrome: No Developmental Delay: No Shingles: No Falls: No Blood Transfusions: No Blood Transfusion Reaction: No Anesthesia Reactions: No Organ Transplant: No Chemotherapy: No Radiation Therapy: No Hyperbaric Therapy: No MRSA: No VRSA: No Vancomycin-Resistant Enterococci: No Human Immunodeficiency Virus (HIV): No Chicken Pox: No Measles: No Mumps: No Rubella (Slovenian Measles): No Pertussis: No Clostridium Difficile: No Cancer: No Cervical Cancer: No Lung Cancer: No Ovarian Cancer: No Surgical History Hysterectomy: No Thyroidectomy: No History of Present Illness HPI Narrative 03/05/2025: Joi is a 29-year-old female with past medical history of Endometriosis, obesity and oligomenorrhea was recently discharged from [facility] for acute pancreatitis in addition to triglyceridemia requiring insulin drip and ICU admission. Patient was also found more cholecystitis which showed some possible biliary dyskinesia, however was deferred for further workup. She comes in for follow-up in regards to her gemfibrozil. She does state that she sees Nancy from [facility] who prescribed her a new refill of gemfibrozil and had told her to follow-up with lipid panel for further medicine adjustment. She was also wondering if she has PCOS, and did confirm that she had a history of endometriosis. It was discussed that patient may need to hold on taking her oral contraceptive as this may be a contributing factor to her hypertriglyceridemia as she denies any history of hypertriglyceridemia. She is going to continue to follow-up with her new practitioner. She says her pain is minimal at this time and has even use any [place] as there was an issue taking get up upon discharge, however has been managing her pain with Tylenol. No other complaints this time Review of Systems Review of Systems Narrative Review of Systems: Constitutional: No fever, chills, fatigue, weakness, weight loss HEENT: No eye pain, vision loss, ear pain, hearing loss, dysphagia, Cardiovascular: No chest pain, palpitations, edema, pain with walking Respiratory: No cough, shortness of breath, wheezing GI: No NVD, abdominal pain, constipation, blood in stool, loss of appetite, heartburn Extremities: No presence of pitting edema MSK: No back pain, joint pain, joint swelling Neuro: No dizziness, numbness, weakness, headaches, seizures, tremors Psych: No anxiety, depression Objective/Exam Narrative Physical exam: General: AAOx3, NAD, obese, wearing glasses HEENT: Moist mucous membranes, conjunctiva clear, EOMI, PERRLA, acanthosis nigracans on neck Cardiovascular: S1, S2, radial pulses +2 bilat, RRR Pulmonary: CTAB bilat no cough, no wheezing GI: No tenderness to palpation, no guarding, rigidity, rebound tenderness or distension Extremities: No presence of trace or pitting edema in lower extremities bilaterally, dorsalis pedis pulses +2 bilaterally Neuro: AAOx3, no focal motor or sensory deficits in the UE or LE bilat Psych: Good judgement, thought and behavior. Cooperative Assessment & Plan Diagnosis / Problem List (1) Acute pancreatitis: Status: Acute Qualifiers: Acute pancreatitis complication: no infection or necrosis Pancreatitis type: other Qualified Code(s): K85.80 - Other acute pancreatitis without necrosis or infection Assessment & Plan: Triglyceridemia induced and her levels were 4000 in the hospital Patient was transition to gemfibrozil after being on insulin drip Patient will need repeat lipid panel as her cholesterol could not be measured when her triglycerides were still high If her cholesterol is elevated she will need to transition to a statin and fenofibrate SHe has to follow-up with her outpatient care provider in 2 weeks with a lipid panel Plan: Continue with gemfibrozil 600 mg BIDAC Follow-up lipid panel Pain control with Tylenol (2) Oligomenorrhea: Status: Acute Assessment & Plan: Patient may also have a component of polycystic ovarian syndrome She may need to stop OCPs as this may be a culprit of her hypertriglyceridemia Patient is not taking OCPs at this time Plan: Follow-up with OB Office Procedures [facility] Level of Care Nursing/Assessment Patient Status: Established Patient Nursing Assessment/Reassessment: Medication Reconciliation, Update PMH in EMR and Vital Signs Coordination of Care: Complex Care and Chronic Disease 1-5, Consent,records obtained, informed consent, Education Simp Pt/Fam and Staff clarify orders Established Patient Charge Established Patient Point Assignment: 85 Established Patient Point Charge: EP Level 3 (80-115)
== END 2025-03-05 13:09 | disposition home or self-care (01) ==
LOC: HODAHC 11:34
PROVIDERS: Supervising Provider Internal Medicine
DX: K85.90 Acute pancreatitis without necrosis or infection, unspecified (principal); N91.5 Oligomenorrhea, unspecified; E66.9 Obesity, unspecified
CPT/HCPCS: 99213; G0463

== ENCOUNTER → 2025-03-20 | Outpatient (CLI) | payer MEDICAID, SELFPAY ==
--- NOTE | 2025-03-20 14:00 | XR_ITS ---
Examination: PA lateral chest 2 views TECHNIQUE: Upright PA lateral chest 2 views Date and time: March 20, 2025 1412 hours Comparison February 25, 2025 INDICATIONS: Left-sided chest pain beginning 2 weeks ago. FINDINGS: Normal heart size. Lungs are clear. The osseous structures are intact. IMPRESSION: No active disease
== END | disposition home or self-care (01) ==
LOC: CDIM 13:45
PROVIDERS: PCP Nurse Practitioner Family; Referring Provider Nurse Practitioner Family; Visit Provider Nurse Practitioner Family
DX: R07.81 Pleurodynia (principal)
CPT/HCPCS: 71046